=== PATIENT | female | born 1975 | race Caucasian/White ===

== ENCOUNTER 2018-08-02 07:55 | Day surgery (SDC) | END 2018-08-02 10:39 | disposition home or self-care (01) ==

== ENCOUNTER 2018-12-08 07:06 | Day surgery (SDC) | payer OTHER ==
[~2018-12-08] VITALS: Ht 157.5 cm; Wt 55.4 kg
[~2018-12-08 07:06] MED LIST: OMEP20CA16 PO; RANI150T5 PO
[2018-12-08] MEDS ORDERED: no medications (08:19)
[2018-12-08 08:22] VITALS: BP 107/64; PULSE 74; RESP 14
[2018-12-08 08:25] VITALS: Ht 157.5 cm; Wt 55.4 kg
[2018-12-08] MEDS ORDERED: MIDAZOLAM 1 MG/ML 2 ML INJ ONE ×2 (09:07→09:08)
[2018-12-08] MEDS ORDERED: FENTAnyl 50 MCG/ML VIAL ONE (09:07)
[2018-12-08 09:35] VITALS: BP 104/64; RESP 16
== END 2018-12-08 09:52 | disposition home or self-care (01) ==
LOC: GIL 07:06
PROVIDERS: ATTEND Internal Medicine Gastroenterology
DX: C16.9 Malignant neoplasm of stomach, unspecified (principal); K29.60 Other gastritis without bleeding
CPT/HCPCS: 43239; 84703; 88305; 88312; 88313; J2250; J3010; Z7610

== ENCOUNTER 2018-12-30 05:29 | Day surgery (SDC) | payer OTHER ==
[2018-12-29 09:56] VITALS: BMI 22.5
[~2018-12-30] VITALS: Ht 153.7 cm; Wt 53.7 kg
[~2018-12-30 05:29] MED LIST changes: -OMEP20CA16 PO; -RANI150T5 PO; +no medications
[2018-12-30 05:56] VITALS: Ht 153.7 cm; Wt 53.7 kg
[2018-12-30] MEDS ORDERED: AMPICILLIN/SULB 3 GM/NS (PMX) 100 ML IVPB ONE (07:00)
== END 2018-12-30 06:15 | disposition home or self-care (01) ==
LOC: SDS 05:29 → UNDOADMIN 05:29 → REC 05:29 → SDS 06:15 → UNDODISIN 06:15 → EDSTATUS 07:30
PROVIDERS: ATTEND Surgery Surgical Oncology
DX: C16.9 Malignant neoplasm of stomach, unspecified (principal); R50.9 Fever, unspecified; Z53.09 Procedure and treatment not carried out because of other contraindication
CPT/HCPCS: J0295

== ENCOUNTER 2019-01-31 06:59 | Day surgery (SDC) | payer OTHER ==
[2019-01-28 17:06] VITALS: BMI 23.3
[~2019-01-31] VITALS: Ht 154.9 cm; Wt 55.0 kg
[2019-01-31] MEDS ORDERED: SOD CHLORIDE 0.9% 1,000 ML IV SCH (07:00)
[2019-01-31] MEDS ORDERED: AMPICILLIN/SULB 3 GM/NS (PMX) 100 ML IVPB ONE (07:00)
[2019-01-31 08:21] VITALS: Ht 154.9 cm; Wt 55.0 kg
[2019-01-31 08:28] VITALS: BP 111/73; PULSE 94; RESP 16
== END 2019-01-31 08:47 | disposition home or self-care (01) ==
LOC: SDS 06:59 → UNDOADMIN 06:59 → REC 06:59 → SDS 08:47 → UNDODISIN 08:47 → EDSTATUS 11:30
PROVIDERS: ATTEND Surgery Surgical Oncology
DX: C16.9 Malignant neoplasm of stomach, unspecified (principal); Z53.8 Procedure and treatment not carried out for other reasons; J02.9 Acute pharyngitis, unspecified
CPT/HCPCS: J0295

== ENCOUNTER 2019-02-11 06:00 | Inpatient (IN) | payer OTHER ==
[2019-02-10 16:25] VITALS: Ht 154.9 cm; Wt 56.3 kg
[2019-02-11] VITALS (35 sets, daily range): BP systolic 114–166; BP diastolic 78–100; PULSE 67–110; RESP 15–21
[~2019-02-11] VITALS: Ht 154.9 cm; Wt 56.3 kg
[2019-02-11] MEDS ORDERED: ROCURONIUM 50 MG INJ ONE ×3 (06:30→09:55)
[2019-02-11] MEDS ORDERED: CEFAZOLIN 1 GM INJ ONE (06:30)
[2019-02-11] MEDS ORDERED: PROPOFOL 20 ML ONE (06:30)
[2019-02-11] MEDS ORDERED: MIDAZOLAM 1 MG/ML 2 ML INJ ONE (06:31)
[2019-02-11] MEDS ORDERED: DEXAMETHASONE 4 MG/ML 5 ML INJ ONE (06:32)
[2019-02-11] MEDS ORDERED: ONDANSETRON 4 MG INJ ONE (06:32)
[2019-02-11] MEDS ORDERED: DESFLURANE 15 MIN ONE (07:00)
[2019-02-11] MEDS ORDERED: SOD CHLORIDE 0.9% 1,000 ML IV ONE (07:00)
--- NOTE | 2019-02-11 07:33 | PREAC ---
Date/Time of Note Date/Time of Note DATE: 02/11/19 TIME: 07:31 Anesthesia Eval and Record Evaluation Time Pre-Procedure Interview DATE: 02/11/19 TIME: 07:31 Age 43 Sex female NPO: 8 hrs Preoperative diagnosis Gastric Cancer Planned procedure Partial Gastrectomy Past Medical History Past Medical History: None Surgery & Anesthesia Issues No known issue Meds Anticoagulation: No Beta Khoa within 24 hr: No Reason Beta Khoa not given: Pt. not on B-Khoa No Active Prescriptions or Reported Meds Current Medications Sodium Chloride 1,000 ml @ 75 mls/hr [id number] ONCE IV Last administered on 02/11/19at 07:07; Admin Dose 75 MLS/HR; Start 02/11/19 at 07:00; Stop 02/11/19 at 20:19 Meds reviewed: Yes Allergies Coded Allergies: No Known Allergy (Unverified , 01/31/19) Allergies Reviewed: Yes Labs/Studies Labs Reviewed: Reviewed by anesthesiologist Result Diagram: 02/11/19 0640 Laboratory Tests 02/11/19 06:40 Blood Bank Test 02/11/19 07:27 Blood Product Summary Counts test: Negative Pre-procedure Exam Last vitals Vital Signs Date Temp Pulse Resp B/P (MAP) Pulse Ox O2 O2 Flow FiO2 Time Delivery Rate 02/11/19 96.2 67 18 114/78 100 Room Air 06:52 (90) Airway: Adequate mouth opening Mallampati: Mallampati II Teeth: Normal Lung: Normal Heart: Normal ASA Physical Status ASA physical status: 2 Emergency: None Planned Anesthetic General/MAC: ETT Pre-operative Attestations Prior to commencing anesthesia and surgery, the patient was re-evaluated, there was verification of: *The patient's identity *The results of appropriate recent lab work and preoperative vital signs *The above evaluation not changing prior to induction *Anesthetic plan, risk benefits, alternative and complications discussed with patient/family; questions answered; patient/family understands, accepts and wishes to proceed. EMIL OSORIO MD February 11, 2019 07:33
[2019-02-11] MEDS ORDERED: BUPIVACAINE 0.5% (SDV) 30 ML INJ ONE (09:22)
[2019-02-11] MEDS ORDERED: FENTAnyl 50 MCG/ML VIAL ONE ×3 (10:16→11:23)
[2019-02-11] MEDS ORDERED: ONDANSETRON 4 MG INJ IV PRN (10:30)
[2019-02-11] MEDS ORDERED: MEPERIDINE 25 MG INJ IV PRN (10:30)
[2019-02-11] MEDS ORDERED: HYDROmorphONE 1 MG/5 ML IV SYRINGE IV PRN (10:30)
[2019-02-11] MEDS ORDERED: GLYCOPYRROLATE 0.4 MG INJ ONE (12:10)
[2019-02-11] MEDS ORDERED: NEOSTIGMINE 3 MG/3 ML SYRINGE ONE (12:10)
[2019-02-11] MEDS: LACTATED RINGER'S 1,000 ML IV SCH ×2 (13:24→18:43)
[2019-02-11] MEDS: CEFAZOLIN 2 GM/50 ML (PMX) 50 ML IVPB SCH ×2 (13:30→21:20)
[2019-02-11] MEDS ORDERED: HYDROmorphONE 0.2 MG/ML PCA IV SCH (13:30)
[2019-02-11] MEDS ORDERED: NALOXONE (0.4 MG/ML) INJ IV PRN (13:30)
[2019-02-11] MEDS ORDERED: HYDROCODONE/APAP (5/325) TAB PO ONE (13:30)
--- NOTE | 2019-02-11 13:44 | OPR ---
Date/Time of Note Date/Time of Note DATE: 02/11/19 TIME: 13:28 Operative Report Procedure Date: February 11, 2019 Preoperative Diagnosis gastric cancer Postoperative Diagnosis same Operation/Procedure Performed 1. laparoscopic subtotal gastrectomy for gastric cancer 2. therapeutic injection of subcutaneous local anesthesia Surgeon see signature line Rig Builder Helper Ligia GREENE Anesthesia Type: general Estimated Blood Loss: 10 - 50 ml's Transfusion none Specimen subtotal gastrectomy anastomosis Grafts/Implants none Complications none Pt Condition Post Procedure: stable Indications This is a 43-year-old female who was diagnosed with gastric cancer. She had seen Dr. Bunch initially and was scheduled for surgery. However the patient had canceled and delayed her surgery multiple times. Discussion was made that her cancer may have progressed. She was urgently told to get surgery. She is now here for laparoscopic subtotal gastrectomy possible open. Risks alternatives benefits and personal were discussed the patient. Potential complications including but not limited to bleeding infection wound dehiscence chronic and acute pain seroma hematoma progression of cancer anastomotic leak and stricture of the anastomosis were discussed the patient. Patient expressed understanding and consents to the operation. Procedure Description Patient is taken to the OR and prepped and draped in usual sterile fashion. Patient was placed in lithotomy with Weeks placement. Surgical timeout is performed IV antibiotics given. Left upper periumbilical transverse incision was made with a 15 blade. Using a 12 mm optical trocar optical entry is performed. Pneumoperitoneum was established. Left upper quadrant 12 mm optical trochars placed in direct visualization of the right upper quadrant 5 mm optical trochars placed under direct visualization. Left flank 12 mm optical trochars placed under direct visualization. Lower abdominal 12 mm optical trochars placed under direct visualization. Upon initial inspection there is no obvious metastatic disease in the liver. Laparoscopic harmonic shmuel was used to dissect the greater omentum off of the transverse mesocolon. This was done laterally to the left into the right of the patient. This was taken up all at the left to the short gastrics. The omentum is off of all the surrounding structures including the spleen. An area of transection was then demarcated. This separation of the omentum from the transverse mesocolon is taken to the patient's right. The gastroepiploic vessels were identified. The duodenum is isolated and identified. The duodenum was then divided from the stomach using a 45 mm echelon white load stapler. The duodenal stump was then oversewn with a running 3-0 Vicryl to ensure good hemostasis. The gastroepiploic vessels in the right gastric vessels are taken using a laparoscopic 45 Weott white load staplers. This dissection was carried prox imally along pars flaccida up to the area of the left gastric artery. The left gastric artery was preserved as a pedicle for the remaining of the stomach. The stomach was then transected with multiple fires of blue load 45 Weott stapler to divide the distal stomach from a small ridge of the proximal stomach. The specimen was set aside in the right upper quadrant. Attention was then paid to the transverse colon and this is reflected superiorly. The ligament of Treitz is followed identified. The jejunum is marched approximately 40 to 50 cm distal from the ligament of Treitz. This area of the jejunum was then assessed for reach to the proximal stomach remnant. There is good reach without any tension. The jejunum was then divided using a 45 mm echelon white load stapler. The mesentery was further divided using laparoscopic harmonic shmuel. The biliopancreatic limb was then marked with clips to identify orientation. The alimentary tract is then brought up up and attached to the proximal stomach with 3-0 silk stay sutures using laparoscopic techniques and laparoscopic suturing. Enterotomies were made in the stomach remnant and the alimentary jejunum. Multiple fires of 45 mm blue load Weott stapler is used to make the gastrojejunostomy. The remnant remaining enterotomy is then reapproximated with interrupted silk 3 oh using laparoscopic suturing techniques. Attention of the staple line was relieved by placing a 3-0 silk from the gastrojejunostomy. The remaining enterotomy was then stapled off with multiple fires of blue and green load Weott stapler. This new staple line is then oversewn with a 3-0 Vicryl using laparoscopic techniques. This anastomotic specimen is set aside. #19 JENNA drains were then placed in the right upper quadrant at the duodenal stump and in the left upper quadrant the gastric jejunostomy anastomosis. These drains were secured using 2-0 nylon's. The midline is then opened with a 10 blade and dissection was carried down to the fascia. Wound protector was placed. The stomach specimen is then retrieved and sent to pathology for proximal distal and frozen analysis. Frozen analysis came back with negative findings for the margins. The anastomotic specimen was also sent for specimen. The biliopancreatic limb was identified and pulled through the midline incision. The alimentary tract was also pulled through. The jejunojejunal anastomosis was then approximately 45 to 50 cm from the gastrojejunostomy anastomotic site. This was performed by placing the enterotomy and the bili pancreatic limb and the alimentary limb. 3-0 silk stay sutures were placed. 2 fires of 45 mm echelon vascular load was used to make a jejunojejunal anastomosis. The enterotomy was then oversewn with a running 3-0 PDS and interrupted 3-0 silk. Mesenteric defect was also closed with a running 3-0 Vicryl. All ports were removed under direct visualization. Skin was closed using skin amarilis. Therapeutic contains local anesthesia was injected at the incision site. Dry dressings were applied. Radha HERNANDEZ February 11, 2019 13:44
--- NOTE | 2019-02-11 13:51 | PAC ---
Date/Time of Note Date/Time of Note DATE: 02/11/19 TIME: 13:50 Post-Anesthesia Notes Post-Anesthesia Note Last documented vital signs Vital Signs Date Temp Pulse Resp B/P (MAP) Pulse Ox O2 O2 Flow FiO2 Time Delivery Rate 02/11/19 96.2 67 18 114/78 100 Room Air 06:52 (90) Activity: WNL Respiratory function: WNL Cardiovascular function: WNL Mental status: Baseline Pain reasonably controlled: Yes Hydration appropriate: Yes Nausea/Vomiting absent: Yes EMIL OSORIO MD February 11, 2019 13:51
--- NOTE | 2019-02-11 18:53 | RADRPT ---
Vent Rate: 90 bpm RR Interval: 668 msec [place] Interval: 144 msec QRS Duration: 75 msec QT Interval: 358 msec QTC Interval: 438 msec P-R-T [place]: 45 - 61 - 60 degrees Sinus rhythm...normal P axis, V-rate 50- 99 Electronically Signed By: Juan Diego Enriquez
[2019-02-11] MEDS: HYDROmorphONE 0.2 MG/ML PCA IV SCH (23:11)
[2019-02-12 01:50] VITALS: BP 132/94; PULSE 87; RESP 18
[2019-02-12] MEDS: PANTOPRAZOLE 40 MG INJ IV SCH (05:23)
[2019-02-12] MEDS: CEFAZOLIN 2 GM/50 ML (PMX) 50 ML IVPB SCH (05:23)
[2019-02-12] MEDS: LACTATED RINGER'S 1,000 ML IV SCH ×4 (05:23→18:33)
--- NOTE | 2019-02-12 08:16 | HP ---
DATE OF ADMISSION: 02/11/2019 CHIEF COMPLAINTS AND HISTORY OF PRESENT ILLNESS: The patient is a 43-year-old female with a diagnosi s of gastric cancer diagnosed by EGD done back in July 2018. The patient has isolated ulcer like area with nodularity noted in the mid body of the stomach. The patient underwent recent EGD and sub sequent biopsy. 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 The ginette ent was initially seen by Dr. Bunch and was cleared for surgery; however, the patient had canceled an d delayed her surgery multiple times. She was urgently told to get surgery due to potential progress ion of cancer. The patient was brought into hospital today and underwent laparoscopic subtotal gastr ectomy. The patient is being kept n.p.o. and has been started on IV fluid, IV Protonix. Pain is man aged with Dilaudid SOFTWARE ENG[employer]PLICATIONS. The patient denies any chest pain or shortness of breath. No history of hea dache, dizziness, syncope. No history of focal weakness or numbness, tingling. REVIEW OF SYSTEMS: Other than postoperative pain, rest of review of systems unremarkable. ALLERGIES: NONE. SOCIAL HISTORY: No smoking or alcohol. FAMILY HISTORY: Noncontributory. ALLERGIES: NONE. PHYSICAL EXAMINATION: GENERAL: The patient is awake, alert, fairly oriented. VITAL SIGNS: Temperature 98.5, pulse 90, respirations 18, blood pressure 144/85, O2 saturation 99%. HEENT: No eye discharge or redness. Conjunctivae are normal. Nose and ears normal. NECK: No mass. CHEST: Fairly clear. CARDIOVASCULAR: S1, S2 normal, no murmur. ABDOMEN: The patient is status post surgery. EXTREMITIES: No edema. Pedal pulses are palpable. SKIN: Without acute rash. NEUROLOGIC: The patient is awake, alert with no gross focal deficit. LABORATORY DATA: Initial WBC was 8.8. Immediate postoperative it went to up 35.3. We will have ano ther followup with CBC. The patient will be given IV cefazolin as per protocol. Chemistries; sodium 141, potassium 3.6, BUN 30, creatinine 8.6, glucose initially was 83. Subsequently it was 251. She has had no history of diabetes. Liver enzymes are normal. IMPRESSION: 1. Gastric cancer status post laparoscopic subtotal gastrectomy. PLAN: The patient admitted on medical floor. The patient will be kept n.p.o., will be given IV flui d, IV pain medication. We will also add IV Protonix. We will obtain followup CBC and CMP. Meanwhil e, the patient will be continued on empiric IV cefazolin as per protocol. Dictated By: KIRAN CARMEN MD AB/NTS Conf#: [id number] DID#: [id number] CC: CLAUDE HERNANDEZ MD; KIRAN CARMEN MD;*EndCC*
[2019-02-12] MEDS: HYDROmorphONE 0.2 MG/ML PCA IV SCH ×2 (09:08→16:43)
[2019-02-12] MEDS: DIPHENHYDRAMINE 50 MG INJ IV PRN (11:06)
[2019-02-12 14:44] VITALS: BP 122/70; PULSE 98; RESP 18
[2019-02-12] MEDS ORDERED: LACTATED RINGER'S 500 ML IV ONE (15:00)
--- NOTE | 2019-02-12 17:16 | PN ---
Date/Time of Note Date/Time of Note DATE: 02/12/19 TIME: 17:14 Assessment/Plan VTE Prophylaxis [place] [facility] [place] risk: 8 SCD applied ([place] [facility] [place] Yes SCD contraindicated: other Pharmacological prophylaxis: other Pharm contraindication: other Lines/Catheters IV [facility]atheter Type (from [facility]): Peripheral IV Urinary Cath still in place: Yes Reason Cath still needed: urinary retention Assessment/Plan Assessment/Plan 1. Gastric cancer status post laparoscopic subtotal gastrectomy. - per sx - continued on empiric IV cefazolin as per protocol. - pain control - wound care 2. Leukocytosis- afebrile; wbc trended down - getting post op cefazolin - fu CBC 3. Anemia0 Hgb stale 4, SCD for DVT prophylaxis Patient seen in collaboration with Dr Busch Result Diagram: 02/12/195 02/12/19 0425 Results 24hrs Laboratory Tests Test 02/12/19 04:25 02/12/19 07:10 White Blood Count 22.4 #H Red Blood Count 3.85 L Hemoglobin 11.9 L Hematocrit 34.5 L Mean Corpuscular Volume 89.6 Mean Corpuscular Hemoglobin 30.9 Mean Corpuscular Hemoglobin Concent 34.5 Red Cell Distribution Width 12.3 Platelet Count 215 Mean Platelet Volume 11.4 H Immature Granulocytes % 0.600 H Neutrophils % 79.2 H Lymphocytes % 11.8 L Monocytes % 8.3 Eosinophils % 0.0 Basophils % 0.1 Nucleated Red Blood Cells % 0.0 Immature Granulocytes # 0.140 H Neutrophils # 17.7 H Lymphocytes # 2.6 Monocytes # 1.9 H Eosinophils # 0.0 Basophils # 0.0 Nucleated Red Blood Cells # 0.0 Sodium Level 134 L Potassium Level 5.0 Chloride Level 99 Carbon Dioxide Level 31 # Anion Gap 4 #L Blood Urea Nitrogen 7 Creatinine 0.64 Est Glomerular Filtrat Rate mL/min > 60 Glucose Level 100 # Calcium Level 9.2 Total Bilirubin 0.7 Direct Bilirubin 0.00 Indirect Bilirubin 0.7 Aspartate Amino Transf (AST/SGOT) 49 H Alanine Aminotransferase (ALT/SGPT) 49 Alkaline Phosphatase 51 Total Protein 6.1 Albumin 3.5 Globulin 2.60 Albumin/Globulin Ratio 1.34 Lab Scanned Report REFERENCE LAB Subjective 24 Hr Interval Summary Eyes: no complaints ENT: no complaints Respiratory: no complaints Gastrointestinal: pain Genitourinary: no complaints Musculoskeletal: no complaints Skin: no complaints Neurologic: no complaints Endocrine: no complaints Lymphatic: no complaints Exam/Review of Systems Exam Vitals Vital Signs Date Temp Pulse Resp B/P (MAP) Pulse Ox O2 O2 Flow FiO2 Time Delivery Rate 02/12/19 18 16:37 02/12/19 98.3 98 122/70 99 Room Air 14:44 (87) 02/12/19 2.0 08:00 Intake and Output 02/11/19 02/11/19 02/12/19 1515:00 23:00 07:00 IntakeIntake Total 3000 ml 50 ml 1050 ml OutputOutput Total 190 ml 900 ml 20 ml BalanceBalance 2810 ml -850 ml 1030 ml Constitutional: alert, well developed Psych: nl mood/affect Head: atraumatic Eyes: nl lids ENMT: nl external ears & nose Neck: non-tender Respiratory: clear to auscultation Cardiovascular: nl pulses, other Gastrointestinal: soft, tender, other (surgical abdomen ) Musculoskeletal: nl extremities to inspection Extremities: normal pulses Neurological: other (alert.rponsive ) Lymph: nontender Results Results 24hrs Laboratory Tests Test 02/12/19 04:25 02/12/19 07:10 White Blood Count 22.4 #H Red Blood Count 3.85 L Hemoglobin 11.9 L Hematocrit 34.5 L Mean Corpuscular Volume 89.6 Mean Corpuscular Hemoglobin 30.9 Mean Corpuscular Hemoglobin Concent 34.5 Red Cell Distribution Width 12.3 Platelet Count 215 Mean Platelet Volume 11.4 H Immature Granulocytes % 0.600 H Neutrophils % 79.2 H Lymphocytes % 11.8 L Monocytes % 8.3 Eosinophils % 0.0 Basophils % 0.1 Nucleated Red Blood Cells % 0.0 Immature Granulocytes # 0.140 H Neutrophils # 17.7 H Lymphocytes # 2.6 Monocytes # 1.9 H Eosinophils # 0.0 Basophils # 0.0 Nucleated Red Blood Cells # 0.0 Sodium Level 134 L Potassium Level 5.0 Chloride Level 99 Carbon Dioxide Level 31 # Anion Gap 4 #L Blood Urea Nitrogen 7 Creatinine 0.64 Est Glomerular Filtrat Rate mL/min > 60 Glucose Level 100 # Calcium Level 9.2 Total Bilirubin 0.7 Direct Bilirubin 0.00 Indirect Bilirubin 0.7 Aspartate Amino Transf (AST/SGOT) 49 H Alanine Aminotransferase (ALT/SGPT) 49 Alkaline Phosphatase 51 Total Protein 6.1 Albumin 3.5 Globulin 2.60 Albumin/Globulin Ratio 1.34 Lab Scanned Report REFERENCE LAB Medications Medication Current Medications Pantoprazole (Protonix Iv) 40 mg DAILY@06 IV Last administered on 02/12/19 05:23; Admin Dose 40 MG; Start 02/12/19 at 06:00 Lactated Ringer's 1,000 ml @ 150 mls/hr Q6H40M IV Last administered on 01/20 15:56; Admin Dose 150 MLS/HR; Start 02/11/19 at 13:24 Naloxone HCl (Narcan) 0.2 mg Q2M PRN IV RR 8 BREATHS/MIN OR LESS; Start 02/11/19 at 13:30 Diphenhydramine HCl (Benadryl) 25 mg Q6H PRN IV ITCHING Last administered on 02/12/19 11:06; Admin Dose 25 MG; Start 02/12/19 at 08:30 Hydromorphone HCl (Dilaudid TYRE RETREADER) Q4PCA IV Last administered on 02/12/19 16:43; Admin Dose 6 MG; Start 02/12/19 at 11:30 JEFFERSON ABRAHAM February 12, 2019 17:16
--- NOTE | 2019-02-12 17:33 | PN ---
DATE: 02/12/2019 SUBJECTIVE: The patient still has significant postoperative pain. No reported vomiting. No reporte d fever or chills. No reported chest pain or shortness of breath. He remains awake, alert. OBJECTIVE: VITAL SIGNS: Temperature 98.8, pulse 87, respirations 18, blood pressure 122/94, O2 sat 99% on nasal cannula. HEENT: No eye discharge or redness. Conjunctivae normal. Oropharynx clear. NECK: No mass. CHEST: Fairly clear. CARDIOVASCULAR: S1, S2 normal. ABDOMEN: The patient is status post subtotal gastrectomy. EXTREMITIES: No edema. Pedal pulse palpable. SKIN: Without rash. NEUROLOGIC: The patient is awake, alert, with no gross focal deficit. LABORATORY DATA: WBC 22.4 down from 35.3, hemoglobin 11.9, platelets 215. Sodium 134, potassium 5, BUN 7, creatinine 0.6. Liver enzymes unremarkable except for AST of 49. IMPRESSION: 1. Gastric cancer, status post laparoscopic subtotal gastrectomy. 2. Mild hypertension. Will add p.r.n. hydralazine. The patient is getting IV cefazolin and Ringer lactate. We continue SCD for DVT prophylaxis. The patient was complaining of itching. Will add Aung adryl for GI prophylaxis. The patient is already on IV Protonix. Will do followup labs tomorrow. T he patient's TIP SCOURER dose will be increased to Dilaudid 0.2 mg an hour continuous. Other parameters will remain the same. Plan was discussed with the nursing staff. Dictated By: KIRAN LAWRENCE/BEULAH Conf#: [id number] DID#: [id number] CC: CLAUDE HERNANDEZ MD;*EndCC*
--- NOTE | 2019-02-12 17:40 | PN ---
DATE: 02/12/2019 Postop day #1 status post subtotal gastrectomy, laparoscopic, for cancer of the stomach. SUBJECTIVE: Complains of too much thirst and would like to eat. OBJECTIVE: GENERAL: Awake, alert, oriented. VITAL SIGNS: Temperature 98.8, heart rate 87, respirations 18, blood pressure 132/94, saturation 99% on 2 liters nasal cannula. No nausea, no vomiting. CLINICAL EXAM: HEART: Regular. LUNGS: Clear. ABDOMEN: Flat and soft, not distended. LABORATORY DATA: WBC 22,400 with 79% segmented, which is shift to the left, hemoglobin 11.9, hematocrit 34.5. Chemistry: Sodium is 134, potassium 5, BUN 7, creatinine 0.64. ASSESSMENT AND PLAN: The patient postop day #1 subtotal gastrectomy laparoscopically for cancer of the stomach. So far the patient is stable. The patient is on TROUSSEAU CONSULTANT, Dilaudid. We are going to increase the IV fluid to 150 mL per hour. We are going to give a 500 mL bolus of lactated Ringer's. Also discussed with Dr. Guerin, and he agrees to give the patient ice chips 1 cup every 8 hours at most. Dictated By: BECKA GEORGE MD PS/NTS Conf#: [id number] DID#: [id number] CC: CLAUDE GUERIN MD;*EndCC* MTDD
[2019-02-12 19:00] VITALS: BP 140/81; PULSE 107; RESP 19
[2019-02-12 19:56] VITALS: BP 143/87; PULSE 97; RESP 18
[2019-02-12] MEDS: ACETAMINOPHEN 1000MG/100ML IV 100 ML IVPB PRN (21:25)
[2019-02-13] MEDS: LACTATED RINGER'S 1,000 ML IV SCH ×4 (01:02→23:32)
[2019-02-13] MEDS: HYDROmorphONE 0.2 MG/ML PCA IV SCH ×2 (01:49→18:53)
[2019-02-13 02:07] VITALS: BP 122/83; PULSE 101; RESP 18
[2019-02-13] MEDS: LORAZEPAM 2 MG INJ IV PRN (02:08)
[2019-02-13] MEDS: PANTOPRAZOLE 40 MG INJ IV SCH (05:20)
[2019-02-13] MEDS: ACETAMINOPHEN 1000MG/100ML IV 100 ML IVPB PRN ×2 (05:20→16:41)
[2019-02-13 07:30] VITALS: BP 111/74; PULSE 127; RESP 15
[2019-02-13] MEDS: PIPER-TAZO 3.375 GM IV (PMX) 100 ML IVPB SCH ×2 (14:59→23:31)
[2019-02-13 16:33] VITALS: BP 122/82; PULSE 100; RESP 15
[2019-02-13] MEDS ORDERED: IOHEXOL 300MG/ML 150 ML BTL ONE (16:52)
--- NOTE | 2019-02-13 17:06 | PN ---
DATE: 02/13/2019 Postop day #2 status post laparoscopic subtotal gastrectomy and Yuan-en-Y gastrojejunostomy. SUBJECTIVE: The patient states that when she started to try to clear liquids including even some ice chips or a little bit of jello, she gets severe epigastric pain. Rate of the pain could be 6/10 and when she stops eating or drinking, the pain goes away gradually. No nausea, no vomiting. OBJECTIVE: GENERAL: Awake and oriented. VITAL SIGNS: Temperature has been maximum 99.3 today. Heart rate documented has been fluctuating be tween 110 and 130. Respirations about 18, blood pressure 111/74. Saturation is 96% in room. HEART: Irregularly irregular. LUNGS: Clear. ABDOMEN: Flat, soft. No guarding, no rigidity. Bowel sounds are present. The patient actually has passed some flatus. EXTREMITIES: Lower extremities are negative. INPUT AND OUTPUT: The patient's urine output has been good and in past 24 hours has urinated 3250 mL . The patient still has Weeks catheter. LABORATORY DATA: WBC dropped from 22,000 yesterday to today 15,000 with 70% segmented, which is norm al differential. Hemoglobin is 12.2, hematocrit 35.8 which is stable. Platelet is 198. Chemistry: Sodium, potassium, BUN, creatinine within normal limits. DIAGNOSTIC DATA: Chest x-ray which was done today, impression: No evidence of acute cardiopulmonary process. IMPRESSION: A 44-year-old female, status post laparoscopic subtotal gastrectomy and anastomosis post op day #2. The patient has experienced some epigastric pain but was started on clear liquids. Also, the patient is anxious to some extent and requesting medication for the sleep. The patient is on PC A Dilaudid. PLAN: Overall, besides the episode of tachycardia which is up 130, otherwise the patient appears sta ble so far. I am going to check with Dr. Hernandez and we will check the Gastrografin swallow and upper GI and Dr. Hernandez wanted to start antibiotic on Zosyn. Dictated By: BECKA GEORGE MD PS/NTS Conf#: [id number] DID#: [id number] CC: KIRAN CARMEN MD; CLAUDE HERNANDEZ MD;*End*
--- NOTE | 2019-02-13 19:27 | RADRPT ---
Vent Rate: 119 bpm RR Interval: 504 msec [place] Interval: 143 msec QRS Duration: 70 msec QT Interval: 304 msec QTC Interval: 428 msec P-R-T [place]: 59 - 64 - 42 degrees Sinus tachycardia...rate> 99 Electronically Signed By: Juan Diego Enriquez
[2019-02-13] MEDS ORDERED: BARIUM SULF 2% 450 ML BTL (BERRY SMOOTHIE) PO ONE (19:30)
[2019-02-13 20:18] VITALS: BP 126/84; PULSE 112; RESP 18
[2019-02-14 02:23] VITALS: BP 121/77; PULSE 107; RESP 18
[2019-02-14] MEDS: PIPER-TAZO 3.375 GM IV (PMX) 100 ML IVPB SCH ×4 (05:06→23:25)
[2019-02-14] MEDS: PANTOPRAZOLE 40 MG INJ IV SCH (05:06)
[2019-02-14 07:24] VITALS: BP 126/83; PULSE 105; RESP 18
[2019-02-14] MEDS: LACTATED RINGER'S 1,000 ML IV SCH ×2 (10:58→11:42)
[2019-02-14] MEDS: HYDROmorphONE 0.2 MG/ML PCA IV SCH (11:40)
--- NOTE | 2019-02-14 12:11 | PN ---
Date/Time of Note Date/Time of Note DATE: 02/14/19 TIME: 12:09 Assessment/Plan VTE Prophylaxis Risk score (from Nsg)>0 risk: 8 SCD applied (from Nsg): Yes Pharmacological prophylaxis: other Lines/Catheters IV Catheter Type (from Nrsg): Peripheral IV Urinary Cath still in place: Yes Reason Cath still needed: other (indicate) Assessment/Plan Assessment/Plan s/p lap subtotal gastrectomy for gastric cancer will continue to monitor advance to clear liquids sheet music salesperson for pain control another day as patient is using it often Result Diagram: 02/14/19 0436 02/14/19 0436 Results 24hrs Laboratory Tests Test 02/14/19 04:36 White Blood Count 14.8 H Red Blood Count 4.03 L Hemoglobin 12.3 Hematocrit 36.9 L Mean Corpuscular Volume 91.6 Mean Corpuscular Hemoglobin 30.5 Mean Corpuscular Hemoglobin Concent 33.3 Red Cell Distribution Width 12.0 Platelet Count 223 Mean Platelet Volume 11.0 H Immature Granulocytes % 0.300 Neutrophils % 79.0 H Lymphocytes % 12.0 L Monocytes % 7.4 Eosinophils % 0.9 Basophils % 0.4 Nucleated Red Blood Cells % 0.0 Immature Granulocytes # 0.050 H Neutrophils # 11.7 H Lymphocytes # 1.8 Monocytes # 1.1 H Eosinophils # 0.1 Basophils # 0.1 Nucleated Red Blood Cells # 0.0 Sodium Level 138 Potassium Level 4.2 Chloride Level 107 Carbon Dioxide Level 18 #L Anion Gap 13 Blood Urea Nitrogen 7 Creatinine 0.62 Est Glomerular Filtrat Rate mL/min > 60 Glucose Level 77 Calcium Level 9.2 Subjective 24 Hr Interval Summary Free Text/Dictation patient doing well. an initial upper GI indicated an anastomotic leak but a CT revealed otherwise and stated that there was no leak. Considering that the patient looks well and no clinical indication of anastomotic leak will proceed with routine postoperative course Exam/Review of Systems Exam Vitals Vital Signs Date Temp Pulse Resp B/P (MAP) Pulse Ox O2 O2 Flow FiO2 Time Delivery Rate 02/14/19 18 11:46 02/14/19 98.8 105 126/83 98 Room Air 07:24 (97) 02/12/19 2.0 20:00 Intake and Output 02/13/19 02/13/19 02/14/19 1515:00 23:00 07:00 IntakeIntake Total 2650 ml 500 ml 1250 ml OutputOutput Total 1690 ml 2370 ml BalanceBalance 960 ml 500 ml -1120 ml Exam c/d/i JENNA drains all serosanguinous Results Results 24hrs Laboratory Tests Test 02/14/19 04:36 White Blood Count 14.8 H Red Blood Count 4.03 L Hemoglobin 12.3 Hematocrit 36.9 L Mean Corpuscular Volume 91.6 Mean Corpuscular Hemoglobin 30.5 Mean Corpuscular Hemoglobin Concent 33.3 Red Cell Distribution Width 12.0 Platelet Count 223 Mean Platelet Volume 11.0 H Immature Granulocytes % 0.300 Neutrophils % 79.0 H Lymphocytes % 12.0 L Monocytes % 7.4 Eosinophils % 0.9 Basophils % 0.4 Nucleated Red Blood Cells % 0.0 Immature Granulocytes # 0.050 H Neutrophils # 11.7 H Lymphocytes # 1.8 Monocytes # 1.1 H Eosinophils # 0.1 Basophils # 0.1 Nucleated Red Blood Cells # 0.0 Sodium Level 138 Potassium Level 4.2 Chloride Level 107 Carbon Dioxide Level 18 #L Anion Gap 13 Blood Urea Nitrogen 7 Creatinine 0.62 Est Glomerular Filtrat Rate mL/min > 60 Glucose Level 77 Calcium Level 9.2 Medications Medication Current Medications Pantoprazole (Protonix Iv) 40 mg DAILY@06 IV Last administered on 02/14/19at 05:06; Admin Dose 40 MG; Start 02/12/19 at 06:00 Lactated Ringer's 1,000 ml @ 100 mls/hr Q10H IV Last administered on 02/14/19at 11:42; Admin Dose 100 MLS/HR; Start 02/11/19 at 13:24 Naloxone HCl (Narcan) 0.2 mg Q2M PRN IV RR 8 BREATHS/MIN OR LESS; Start 02/11/19 at 13:30 Diphenhydramine HCl (Benadryl) 25 mg Q6H PRN IV ITCHING Last administered on 02/12/19at 11:06; Admin Dose 25 MG; Start 02/12/19 at 08:30 Hydromorphone HCl (Dilaudid CARD PLAYER) Q4PCA IV Last administered on 02/14/19at 11:40; Admin Dose 6 MG; Start 02/12/19 at 11:30 Lorazepam (Ativan) 1 mg HS PRN IV SLEEP Last administered on 02/13/19at 02:08; Admin Dose 1 MG; Start 02/13/19 at 02:00 Piperacillin Sod/ Tazobactam Sod 100 ml @ 200 mls/hr Q6 IVPB Last administered on 02/14/19at 11:40; Admin Dose 200 MLS/HR; Start 02/13/19 at 14:30 Radha HERNANDEZ February 14, 2019 12:11
[2019-02-14 14:15] VITALS: BP 129/91; PULSE 101; RESP 18
--- NOTE | 2019-02-14 17:21 | PN ---
Date/Time of Note Date/Time of Note DATE: 02/14/19 TIME: 17:18 Assessment/Plan VTE Prophylaxis Risk score (from Ns)>0 risk: 8 SCD applied (from Ns): Yes Pharmacological prophylaxis: NA/contraindicated Pharm contraindication: surgical contra Lines/Catheters IV Catheter Type (from Nrsg): Peripheral IV Central line still needed: Yes Urinary Cath still in place: Yes Reason Cath still needed: urinary retention Assessment/Plan Hospital Course Patient is sitting in his chair, pain is adequately controlled with REMOTE SENSING TECHNICIAN Dilau did, started on a clear liquid diet, patient is encouraged to use incentive spirometer. Assessment/Plan -Gastric cancer, status post laparoscopic subtotal gastrectomy. Change IV fluids and postoperative antibiotics. Continue REMOTE SENSING TECHNICIAN Dilaudid as needed for pain and Zofran as needed for nausea. Advance diet per surgery. Recommendations based on clinical course. Plan of care discussed with Dr. Busch. Result Diagram: 02/14/19 0436 02/14/19 0436 Results 24hrs Laboratory Tests Test 02/14/19 04:36 White Blood Count 14.8 H Red Blood Count 4.03 L Hemoglobin 12.3 Hematocrit 36.9 L Mean Corpuscular Volume 91.6 Mean Corpuscular Hemoglobin 30.5 Mean Corpuscular Hemoglobin Concent 33.3 Red Cell Distribution Width 12.0 Platelet Count 223 Mean Platelet Volume 11.0 H Immature Granulocytes % 0.300 Neutrophils % 79.0 H Lymphocytes % 12.0 L Monocytes % 7.4 Eosinophils % 0.9 Basophils % 0.4 Nucleated Red Blood Cells % 0.0 Immature Granulocytes # 0.050 H Neutrophils # 11.7 H Lymphocytes # 1.8 Monocytes # 1.1 H Eosinophils # 0.1 Basophils # 0.1 Nucleated Red Blood Cells # 0.0 Sodium Level 138 Potassium Level 4.2 Chloride Level 107 Carbon Dioxide Level 18 #L Anion Gap 13 Blood Urea Nitrogen 7 Creatinine 0.62 Est Glomerular Filtrat Rate mL/min > 60 Glucose Level 77 Calcium Level 9.2 Exam/Review of Systems Exam Vitals Vital Signs Date Temp Pulse Resp B/P (MAP) Pulse Ox O2 O2 Flow FiO2 Time Delivery Rate 02/14/19 98.3 101 18 129/91 99 14:15 (104) 02/14/19 Room Air 07:24 02/12/19 2.0 20:00 Intake and Output 02/13/19 02/13/19 02/14/19 1515:00 23:00 07:00 IntakeIntake Total 2650 ml 500 ml 1250 ml OutputOutput Total 1690 ml 2370 ml BalanceBalance 960 ml 500 ml -1120 ml Constitutional: alert, oriented Head: normocephalic Neck: supple Respiratory: clear to auscultation Cardiovascular: nl pulses Gastrointestinal: soft, other (Status post surgery with multiple incisions intact with amarilis, right lower quadrant JENNA drain) Extremities: normal pulses Neurological: nl mental status Results Results 24hrs Laboratory Tests Test 02/14/19 04:36 White Blood Count 14.8 H Red Blood Count 4.03 L Hemoglobin 12.3 Hematocrit 36.9 L Mean Corpuscular Volume 91.6 Mean Corpuscular Hemoglobin 30.5 Mean Corpuscular Hemoglobin Concent 33.3 Red Cell Distribution Width 12.0 Platelet Count 223 Mean Platelet Volume 11.0 H Immature Granulocytes % 0.300 Neutrophils % 79.0 H Lymphocytes % 12.0 L Monocytes % 7.4 Eosinophils % 0.9 Basophils % 0.4 Nucleated Red Blood Cells % 0.0 Immature Granulocytes # 0.050 H Neutrophils # 11.7 H Lymphocytes # 1.8 Monocytes # 1.1 H Eosinophils # 0.1 Basophils # 0.1 Nucleated Red Blood Cells # 0.0 Sodium Level 138 Potassium Level 4.2 Chloride Level 107 Carbon Dioxide Level 18 #L Anion Gap 13 Blood Urea Nitrogen 7 Creatinine 0.62 Est Glomerular Filtrat Rate mL/min > 60 Glucose Level 77 Calcium Level 9.2 Medications Medication Current Medications Pantoprazole (Protonix Iv) 40 mg DAILY@06 IV Last administered on 02/14/19at 05:06; Admin Dose 40 MG; Start 02/12/19 at 06:00 Naloxone HCl (Narcan) 0.2 mg Q2M PRN IV RR 8 BREATHS/MIN OR LESS; Start 02/11/19 at 13:30 Diphenhydramine HCl (Benadryl) 25 mg Q6H PRN IV ITCHING Last administered on 02/12/19at 11:06; Admin Dose 25 MG; Start 02/12/19 at 08:30 Hydromorphone HCl (Dilaudid REMOTE SENSING TECHNICIAN) Q4PCA IV Last administered on 02/14/19at 11:40; Admin Dose 6 MG; Start 02/12/19 at 11:30 Lorazepam (Ativan) 1 mg HS PRN IV SLEEP Last administered on 02/13/19at 02:08; Admin Dose 1 MG; Start 02/13/19 at 02:00 Piperacillin Sod/ Tazobactam Sod 100 ml @ 200 mls/hr Q6 IVPB Last administered on 02/14/19at 11:40; Admin Dose 200 MLS/HR; Start 02/13/19 at 14:30 RADHA ENRIQUEZ February 14, 2019 17:21
[2019-02-14 20:10] VITALS: BP 135/90; PULSE 105; RESP 17
[2019-02-15] VITALS (10 sets, daily range): BP systolic 120–155; BP diastolic 73–95; PULSE 81–149; RESP 17–20
[2019-02-15] MEDS: HYDROmorphONE 0.2 MG/ML PCA IV SCH ×2 (00:47→14:00)
[2019-02-15] MEDS: PIPER-TAZO 3.375 GM IV (PMX) 100 ML IVPB SCH ×2 (05:07→11:09)
[2019-02-15] MEDS: PANTOPRAZOLE 40 MG INJ IV SCH (05:08)
--- NOTE | 2019-02-15 15:21 | PN ---
Date/Time of Note Date/Time of Note DATE: 02/15/19 TIME: 15:20 Assessment/Plan VTE Prophylaxis Risk score (from Ns)>0 risk: 4 SCD applied (from Ns): Yes Pharmacological prophylaxis: NA/contraindicated Pharm contraindication: surgical contra Lines/Catheters IV Catheter Type (from Nrsg): Peripheral IV Urinary Cath still in place: No Assessment/Plan Hospital Course Patient tolerates clear liquid diet without vomiting, complains of occasional nausea, continued on HOP SORTER Dilaudid for pain. Assessment/Plan -Gastric cancer, status post laparoscopic subtotal gastrectomy. Change IV fluids and postoperative antibiotics. Continue HOP SORTER Dilaudid as needed for pain and Zofran as needed for nausea. Advance diet per surgery. Recommendations based on clinical course. Plan of care discussed with Dr. Greenberg Result Diagram: 02/15/192 02/15/19 0442 Results 24hrs Laboratory Tests Test 02/15/19 04:42 White Blood Count 12.5 H Red Blood Count 4.34 Hemoglobin 13.1 Hematocrit 37.9 Mean Corpuscular Volume 87.3 Mean Corpuscular Hemoglobin 30.2 Mean Corpuscular Hemoglobin Concent 34.6 Red Cell Distribution Width 11.9 Platelet Count 253 Mean Platelet Volume 10.5 H Immature Granulocytes % 0.400 Neutrophils % 68.8 Lymphocytes % 18.2 Monocytes % 9.7 Eosinophils % 2.6 Basophils % 0.3 Nucleated Red Blood Cells % 0.0 Immature Granulocytes # 0.050 H Neutrophils # 8.6 H Lymphocytes # 2.3 Monocytes # 1.2 H Eosinophils # 0.3 Basophils # 0.0 Nucleated Red Blood Cells # 0.0 Sodium Level 137 Potassium Level 3.6 Chloride Level 106 Carbon Dioxide Level 24 Anion Gap 7 Blood Urea Nitrogen 4 L Creatinine 0.51 Est Glomerular Filtrat Rate mL/min > 60 Glucose Level 105 Calcium Level 9.2 Exam/Review of Systems Exam Vitals Vital Signs Date Temp Pulse Resp B/P (MAP) Pulse Ox O2 O2 Flow FiO2 Time Delivery Rate 02/15/19 97.8 108 18 133/91 98 Room Air 15:05 (105) 02/12/19 2.0 20:00 Intake and Output 02/14/19 02/14/19 02/15/19 1515:00 23:00 07:00 IntakeIntake Total 950 ml 700 ml 200 ml OutputOutput Total 110 ml 40 ml 65 ml BalanceBalance 840 ml 660 ml 135 ml Exam Constitutional: alert, oriented Respiratory: clear to auscultation Cardiovascular: nl pulses Gastrointestinal: soft, other (Status post surgery with multiple incisions intact with amarilis, right lower quadrant JENNA drain) Extremities: normal pulses Neurological: nl mental status Results Results 24hrs Laboratory Tests Test 02/15/19 04:42 White Blood Count 12.5 H Red Blood Count 4.34 Hemoglobin 13.1 Hematocrit 37.9 Mean Corpuscular Volume 87.3 Mean Corpuscular Hemoglobin 30.2 Mean Corpuscular Hemoglobin Concent 34.6 Red Cell Distribution Width 11.9 Platelet Count 253 Mean Platelet Volume 10.5 H Immature Granulocytes % 0.400 Neutrophils % 68.8 Lymphocytes % 18.2 Monocytes % 9.7 Eosinophils % 2.6 Basophils % 0.3 Nucleated Red Blood Cells % 0.0 Immature Granulocytes # 0.050 H Neutrophils # 8.6 H Lymphocytes # 2.3 Monocytes # 1.2 H Eosinophils # 0.3 Basophils # 0.0 Nucleated Red Blood Cells # 0.0 Sodium Level 137 Potassium Level 3.6 Chloride Level 106 Carbon Dioxide Level 24 Anion Gap 7 Blood Urea Nitrogen 4 L Creatinine 0.51 Est Glomerular Filtrat Rate mL/min > 60 Glucose Level 105 Calcium Level 9.2 Medications Medication Current Medications Pantoprazole (Protonix Iv) 40 mg DAILY@06 IV Last administered on 02/15/19at 05 :08; Admin Dose 40 MG; Start 02/12/19 at 06:00 Naloxone HCl (Narcan) 0.2 mg Q2M PRN IV RR 8 BREATHS/MIN OR LESS; Start 02/11/19 at 13:30 Diphenhydramine HCl (Benadryl) 25 mg Q6H PRN IV ITCHING Last administered on 02/12/19at 11:06; Admin Dose 25 MG; Start 02/12/19 at 08:30 Hydromorphone HCl (Dilaudid HOP SORTER) Q4PCA IV Last administered on 02/15/19at 14:00; Admin Dose 6 MG; Start 02/12/19 at 11:30 Lorazepam (Ativan) 1 mg HS PRN IV SLEEP Last administered on 02/13/19at 02:08; Admin Dose 1 MG; Start 02/13/19 at 02:00 Piperacillin Sod/ Tazobactam Sod 100 ml @ 200 mls/hr Q6 IVPB Last administered on 02/15/19at 11:09; Admin Dose 200 MLS/HR; Start 02/13/19 at 14:30 RADHA ENRIQUEZ February 15, 2019 15:21
--- NOTE | 2019-02-15 17:34 | PN ---
Date/Time of Note Date/Time of Note DATE: 02/15/19 TIME: 17:33 Assessment/Plan VTE Prophylaxis Risk score (from Ns)>0 risk: 4 SCD applied (from Ns): Yes Pharmacological prophylaxis: other Lines/Catheters IV [facility]atheter Type (from [facility]): Peripheral IV Urinary Cath still in place: No Assessment/Plan Assessment/Plan s/p lap subtotal gastrectomy advance to fulls Result Diagram: 02/15/19 0442 02/15/19 0442 Results 24hrs Laboratory Tests Test 02/15/19 04:42 White Blood Count 12.5 H Red Blood Count 4.34 Hemoglobin 13.1 Hematocrit 37.9 Mean Corpuscular Volume 87.3 Mean Corpuscular Hemoglobin 30.2 Mean Corpuscular Hemoglobin Concent 34.6 Red Cell Distribution Width 11.9 Platelet Count 253 Mean Platelet Volume 10.5 H Immature Granulocytes % 0.400 Neutrophils % 68.8 Lymphocytes % 18.2 Monocytes % 9.7 Eosinophils % 2.6 Basophils % 0.3 Nucleated Red Blood Cells % 0.0 Immature Granulocytes # 0.050 H Neutrophils # 8.6 H Lymphocytes # 2.3 Monocytes # 1.2 H Eosinophils # 0.3 Basophils # 0.0 Nucleated Red Blood Cells # 0.0 Sodium Level 137 Potassium Level 3.6 Chloride Level 106 Carbon Dioxide Level 24 Anion Gap 7 Blood Urea Nitrogen 4 L Creatinine 0.51 Est Glomerular Filtrat Rate mL/min > 60 Glucose Level 105 Calcium Level 9.2 Subjective 24 Hr Interval Summary Free Text/Dictation steady improvement, a little gaseous Exam/Review of Systems Exam Vitals Vital Signs Date Temp Pulse Resp B/P (MAP) Pulse Ox O2 O2 Flow FiO2 Time Delivery Rate 02/15/19 97.8 108 18 133/91 98 Room Air 15:05 (105) 02/12/19 2.0 20:00 Intake and Output 02/14/19 02/14/19 02/15/19 1515:00 23:00 07:00 IntakeIntake Total 950 ml 700 ml 200 ml OutputOutput Total 110 ml 40 ml 65 ml BalanceBalance 840 ml 660 ml 135 ml Exam c/d/i drains in place Results Results 24hrs Laboratory Tests Test 02/15/19 04:42 White Blood Count 12.5 H Red Blood Count 4.34 Hemoglobin 13.1 Hematocrit 37.9 Mean Corpuscular Volume 87.3 Mean Corpuscular Hemoglobin 30.2 Mean Corpuscular Hemoglobin Concent 34.6 Red Cell Distribution Width 11.9 Platelet Count 253 Mean Platelet Volume 10.5 H Immature Granulocytes % 0.400 Neutrophils % 68.8 Lymphocytes % 18.2 Monocytes % 9.7 Eosinophils % 2.6 Basophils % 0.3 Nucleated Red Blood Cells % 0.0 Immature Granulocytes # 0.050 H Neutrophils # 8.6 H Lymphocytes # 2.3 Monocytes # 1.2 H Eosinophils # 0.3 Basophils # 0.0 Nucleated Red Blood Cells # 0.0 Sodium Level 137 Potassium Level 3.6 Chloride Level 106 Carbon Dioxide Level 24 Anion Gap 7 Blood Urea Nitrogen 4 L Creatinine 0.51 Est Glomerular Filtrat Rate mL/min > 60 Glucose Level 105 Calcium Level 9.2 Medications Medication Current Medications Pantoprazole (Protonix Iv) 40 mg DAILY@06 IV Last administered on 02/15/19 05:08; Admin Dose 40 MG; Start 02/12/19 at 06:00 Naloxone HCl (Narcan) 0.2 mg Q2M PRN IV RR 8 BREATHS/MIN OR LESS; Start 02/11/19 at 13:30 Diphenhydramine HCl (Benadryl) 25 mg Q6H PRN IV ITCHING Last administered on 02/12/19at 11:06; Admin Dose 25 MG; Start 02/12/19 at 08:30 Hydromorphone HCl (Dilaudid PATTERN RULER) Q4PCA IV Last administered on 02/15/19at 14:00; Admin Dose 6 MG; Start 02/12/19 at 11:30 Lorazepam (Ativan) 1 mg HS PRN IV SLEEP Last administered on 02/13/19at 02:08; Admin Dose 1 MG; Start 02/13/19 at 02:00 Radha HERNANDEZ February 15, 2019 17:34
[2019-02-15] MEDS: 1/2 NS + KCL 20 MEQ 1,000 ML IV SCH ×2 (18:38→22:29)
[2019-02-15] MEDS ORDERED: SOD CHLORIDE 0.9% 1,000 ML IV ONE (19:00)
[2019-02-16] VITALS (10 sets, daily range): BP systolic 130–136; BP diastolic 68–96; PULSE 98–128; RESP 18–20
[2019-02-16] MEDS: PANTOPRAZOLE 40 MG INJ IV SCH (06:01)
[2019-02-16] MEDS: ONDANSETRON 4 MG INJ IV PRN ×2 (06:14→17:58)
[2019-02-16] MEDS: HYDROmorphONE 0.2 MG/ML PCA IV SCH ×2 (08:04→20:21)
--- NOTE | 2019-02-16 12:48 | PN ---
Date/Time of Note Date/Time of Note DATE: 02/16/19 TIME: 12:43 Assessment/Plan VTE Prophylaxis Risk score (from Ns)>0 risk: 3 SCD applied (from Ns): Yes Pharmacological prophylaxis: NA/contraindicated Pharm contraindication: surgical contra Lines/Catheters IV Catheter Type (from Nrsg): Peripheral IV Urinary Cath still in place: No Assessment/Plan Hospital Course Patient developed tachycardia with heart rate all the way to 140s last night status post IV fluid bolus, patient was transferred to telemetry, currently in sinus rate sinus tach with rate from 80-110. Any chest pain denies shortness of breath, patient continues on EXT JS DEVELOPER Dilaudid, currently on a clear liquid diet, denies nausea. Assessment/Plan -Gastric cancer, status post laparoscopic subtotal gastrectomy. Change IV fluids and postoperative antibiotics. Continue EXT JS DEVELOPER Dilaudid as needed for pain and Zofran as needed for nausea. Advance diet per surgery. Recommendations based on clinical course. Plan of care discussed with Dr. Busch. Result Diagram: 02/15/1944102/15/19441 Exam/Review of Systems Exam Vitals Vital Signs Date Temp Pulse Resp B/P (MAP) Pulse Ox O2 O2 Flow FiO2 Time Delivery Rate 02/16/19 98.3 107 20 136/86 100 Room Air 11:18 (103) 02/12/19 2.0 20:00 Intake and Output 02/15/19 02/15/19 02/16/19 1515:00 23:00 07:00 IntakeIntake Total 400 ml 315 ml OutputOutput Total 170 ml BalanceBalance 400 ml 145 ml Exam Constitutional: alert, oriented Respiratory: clear to auscultation Cardiovascular: nl pulses Gastrointestinal: soft, other (Status post surgery with multiple incisions intact with amarilis, JENNA drains) Extremities: normal pulses Neurological: nl mental status Medications Medication Current Medications Pantoprazole (Protonix Iv) 40 mg DAILY@06 IV Last administered on 02/16/19at 06:01; Admin Dose 40 MG; Start 02/12/19 at 06:00 Naloxone HCl (Narcan) 0.2 mg Q2M PRN IV RR 8 BREATHS/MIN OR LESS; Start 02/11/19 at 13:30 Diphenhydramine HCl (Benadryl) 25 mg Q6H PRN IV ITCHING Last administered on 02/12/19 11:06; Admin Dose 25 MG; Start 02/12/19 at 08:30 Hydromorphone HCl (Dilaudid EXT JS DEVELOPER) Q4PCA IV Last administered on 02/16/19 08: 04; Admin Dose 30 MG; Start 02/12/19 at 11:30 Lorazepam (Ativan) 1 mg HS PRN IV SLEEP Last administered on 02/13/19 02:08; Admin Dose 1 MG; Start 02/13/19 at 02:00 Potassium Chloride/Sodium Chloride 1,000 ml @ 75 mls/hr [id number] IV Last administered on 02/15/19 22:29; Admin Dose 75 MLS/HR; Start 02/15/19 at 18:00 Ondansetron HCl (Zofran Inj) 4 mg Q6H PRN IV NAUSEA AND/OR VOMITING Last administered on 02/16/19 06:14; Admin Dose 4 MG; Start 02/15/19 at 23:00 RADHA ENRIQUEZ February 16, 2019 12:48
[2019-02-16] MEDS: 1/2 NS + KCL 20 MEQ 1,000 ML IV SCH (20:53)
[2019-02-17] VITALS (11 sets, daily range): BP systolic 124–153; BP diastolic 69–86; PULSE 77–109; RESP 18–19
[2019-02-17] MEDS: PANTOPRAZOLE 40 MG INJ IV SCH (06:23)
[2019-02-17] MEDS: HYDROmorphONE 0.2 MG/ML PCA IV SCH ×2 (07:42→22:06)
[2019-02-17] MEDS: 1/2 NS + KCL 20 MEQ 1,000 ML IV SCH ×3 (10:10→23:32)
--- NOTE | 2019-02-17 11:30 | PN ---
Date/Time of Note Date/Time of Note DATE: 02/17/19 TIME: 11:28 Assessment/Plan VTE Prophylaxis Risk score (from Nsg)>0 risk: 5 SCD applied (from Nsg): Yes Pharmacological prophylaxis: other Lines/Catheters IV Catheter Type (from Nrsg): Peripheral IV Urinary Cath still in place: No Assessment/Plan Assessment/Plan s/p lap subtotal gastrectomy with expected postop course will need additional time due to pain issues possible dc in one or two days Result Diagram: 02/17/19 0709 02/17/19 0709 Results 24hrs Laboratory Tests Test 02/16/19 14:08 02/17/19 07:09 White Blood Count 13.1 H 11.3 H Red Blood Count 4.50 3.92 L Hemoglobin 13.7 11.8 L Hematocrit 39.4 34.1 L Mean Corpuscular Volume 87.6 87.0 Mean Corpuscular Hemoglobin 30.4 30.1 Mean Corpuscular Hemoglobin Concent 34.8 34.6 Red Cell Distribution Width 12.3 12.2 Platelet Count 311 # 276 Mean Platelet Volume 10.4 10.7 H Immature Granulocytes % 0.500 H 0.400 Neutrophils % 68.0 58.1 Lymphocytes % 21.0 28.3 Monocytes % 8.2 8.6 Eosinophils % 1.9 4.1 Basophils % 0.4 0.5 Nucleated Red Blood Cells % 0.0 0.0 Immature Granulocytes # 0.060 H 0.050 H Neutrophils # 8.9 H 6.6 Lymphocytes # 2.8 3.2 H Monocytes # 1.1 H 1.0 H Eosinophils # 0.3 0.5 Basophils # 0.1 0.1 Nucleated Red Blood Cells # 0.0 0.0 Sodium Level 135 136 Potassium Level 4.2 3.5 Chloride Level 102 102 Carbon Dioxide Level 25 24 Anion Gap 8 10 Blood Urea Nitrogen 4 L 3 L Creatinine 0.54 0.50 Est Glomerular Filtrat Rate mL/min > 60 > 60 Glucose Level 108 78 Calcium Level 9.1 8.8 Magnesium Level 1.8 Troponin I < 0.012 Subjective 24 Hr Interval Summary Free Text/Dictation patient has one episode of vomiting yesterday but otherwise has been tolerating diet left flank drain which was placed near the GJ anastomosis has been serosanguinous and no enteric contents. It has been leaking and with minimal amount and was removed at bedside Exam/Review of Systems Exam Vitals Vital Signs Date Temp Pulse Resp B/P (MAP) Pulse Ox O2 O2 Flow FiO2 Time Delivery Rate 02/17/19 98.3 88 18 128/69 97 11:10 (88) 02/16/19 Room Air 14:56 Intake and Output 02/16/19 02/16/19 02/17/19 1515:00 23:00 07:00 IntakeIntake Total 400 ml 720 ml 1250 ml OutputOutput Total 1455 ml BalanceBalance 400 ml -735 ml 1250 ml Exam c/d/i right flank JENNA in place serosanguinous Results Results 24hrs Laboratory Tests Test 02/16/19 14:08 02/17/19 07:09 White Blood Count 13.1 H 11.3 H Red Blood Count 4.50 3.92 L Hemoglobin 13.7 11.8 L Hematocrit 39.4 34.1 L Mean Corpuscular Volume 87.6 87.0 Mean Corpuscular Hemoglobin 30.4 30.1 Mean Corpuscular Hemoglobin Concent 34.8 34.6 Red Cell Distribution Width 12.3 12.2 Platelet Count 311 # 276 Mean Platelet Volume 10.4 10.7 H Immature Granulocytes % 0.500 H 0.400 Neutrophils % 68.0 58.1 Lymphocytes % 21.0 28.3 Monocytes % 8.2 8.6 Eosinophils % 1.9 4.1 Basophils % 0.4 0.5 Nucleated Red Blood Cells % 0.0 0.0 Immature Granulocytes # 0.060 H 0.050 H Neutrophils # 8.9 H 6.6 Lymphocytes # 2.8 3.2 H Monocytes # 1.1 H 1.0 H Eosinophils # 0.3 0.5 Basophils # 0.1 0.1 Nucleated Red Blood Cells # 0.0 0.0 Sodium Level 135 136 Potassium Level 4.2 3.5 Chloride Level 102 102 Carbon Dioxide Level 25 24 Anion Gap 8 10 Blood Urea Nitrogen 4 L 3 L Creatinine 0.54 0.50 Est Glomerular Filtrat Rate mL/min > 60 > 60 Glucose Level 108 78 Calcium Level 9.1 8.8 Magnesium Level 1.8 Troponin I < 0.012 Medications Medication Current Medications Pantoprazole (Protonix Iv) 40 mg DAILY@06 IV Last administered on 02/17/19at 06:23; Admin Dose 40 MG; Start 02/12/19 at 06:00 Naloxone HCl (Narcan) 0.2 mg Q2M PRN IV RR 8 BREATHS/MIN OR LESS; Start 02/11/19 at 13:30 Diphenhydramine HCl (Benadryl) 25 mg Q6H PRN IV ITCHING Last administered on 02/12/19 11:06; Admin Dose 25 MG; Start 02/12/19 at 08:30 Hydromorphone HCl (Dilaudid CARPET REPAIRER) Q4PCA IV Last administered on 02/17/19 07:42; Admin Dose 6 MG; Start 02/12/19 at 11:30 Lorazepam (Ativan) 1 mg HS PRN IV SLEEP Last administered on 02/13/19 02:08; Admin Dose 1 MG; Start 02/13/19 at 02:00 Potassium Chloride/Sodium Chloride 1,000 ml @ 75 mls/hr [id number] IV Last administered on 02/17/19at 10:10; Admin Dose 75 MLS/HR; Start 02/15/19 at 18:00 Ondansetron HCl (Zofran Inj) 4 mg Q6H PRN IV NAUSEA AND/OR VOMITING Last administered on 02/16/19 17:58; Admin Dose 4 MG; Start 02/15/19 at 23:00 Radha HERNANDEZ February 17, 2019 11:30
--- NOTE | 2019-02-17 14:32 | PN ---
Date/Time of Note Date/Time of Note DATE: 02/17/19 TIME: 14:22 Assessment/Plan VTE Prophylaxis Risk score (from Ns)>0 risk: 5 SCD applied (from Ns): Yes Pharmacological prophylaxis: NA/contraindicated Pharm contraindication: surgical contra Lines/Catheters IV Catheter Type (from Nrs): Peripheral IV Urinary Cath still in place: No Assessment/Plan Hospital Course Patient is still tachycardic however heart rate improved to compare to yesterday, patient continues on UPTWIST SPINNER Dilaudid as needed for pain, started on mechanical soft diet last night, continue current care. Assessment/Plan -Gastric cancer, status post laparoscopic subtotal gastrectomy. Change IV fluids and postoperative antibiotics. Continue UPTWIST SPINNER Dilaudid as needed for pain and Zofran as needed for nausea. Advance diet per surgery. Further recommendations based on clinical course. Plan of care discussed with Dr. Busch. Result Diagram: 02/17/19 0709 02/17/19 0709 Results 24hrs Laboratory Tests Test 02/17/19 07:09 White Blood Count 11.3 H Red Blood Count 3.92 L Hemoglobin 11.8 L Hematocrit 34.1 L Mean Corpuscular Volume 87.0 Mean Corpuscular Hemoglobin 30.1 Mean Corpuscular Hemoglobin Concent 34.6 Red Cell Distribution Width 12.2 Platelet Count 276 Mean Platelet Volume 10.7 H Immature Granulocytes % 0.400 Neutrophils % 58.1 Lymphocytes % 28.3 Monocytes % 8.6 Eosinophils % 4.1 Basophils % 0.5 Nucleated Red Blood Cells % 0.0 Immature Granulocytes # 0.050 H Neutrophils # 6.6 Lymphocytes # 3.2 H Monocytes # 1.0 H Eosinophils # 0.5 Basophils # 0.1 Nucleated Red Blood Cells # 0.0 Sodium Level 136 Potassium Level 3.5 Chloride Level 102 Carbon Dioxide Level 24 Anion Gap 10 Blood Urea Nitrogen 3 L Creatinine 0.50 Est Glomerular Filtrat Rate mL/min > 60 Glucose Level 78 Calcium Level 8.8 Exam/Review of Systems Exam Vitals Vital Signs Date Temp Pulse Resp B/P (MAP) Pulse Ox O2 O2 Flow FiO2 Time Delivery Rate 02/17/19 92 12:00 02/17/19 98.3 18 128/69 97 11:10 (88) 02/16/19 Room Air 14:56 Intake and Output 02/16/19 02/16/19 02/17/19 1515:00 23:00 07:00 IntakeIntake Total 400 ml 720 ml 1250 ml OutputOutput Total 1455 ml BalanceBalance 400 ml -735 ml 1250 ml Exam Constitutional: alert, oriented Respiratory: clear to auscultation Cardiovascular: nl pulses Gastrointestinal: soft, other (Status post surgery with multiple incisions intact with amarilis, JENNA drains) Extremities: normal pulses Neurological: nl mental status Results Results 24hrs Laboratory Tests Test 02/17/19 07:09 White Blood Count 11.3 H Red Blood Count 3.92 L Hemoglobin 11.8 L Hematocrit 34.1 L Mean Corpuscular Volume 87.0 Mean Corpuscular Hemoglobin 30.1 Mean Corpuscular Hemoglobin Concent 34.6 Red Cell Distribution Width 12.2 Platelet Count 276 Mean Platelet Volume 10.7 H Immature Granulocytes % 0.400 Neutrophils % 58.1 Lymphocytes % 28.3 Monocytes % 8.6 Eosinophils % 4.1 Basophils % 0.5 Nucleated Red Blood Cells % 0.0 Immature Granulocytes # 0.050 H Neutrophils # 6.6 Lymphocytes # 3.2 H Monocytes # 1.0 H Eosinophils # 0.5 Basophils # 0.1 Nucleated Red Blood Cells # 0.0 Sodium Level 136 Potassium Level 3.5 Chloride Level 102 Carbon Dioxide Level 24 Anion Gap 10 Blood Urea Nitrogen 3 L Creatinine 0.50 Est Glomerular Filtrat Rate mL/min > 60 Glucose Level 78 Calcium Level 8.8 Medications Medication Current Medications Pantoprazole (Protonix Iv) 40 mg DAILY@06 IV Last administered on 02/17/19at 06:23; Admin Dose 40 MG; Start 02/12/19 at 06:00 Naloxone HCl (Narcan) 0.2 mg Q2M PRN IV RR 8 BREATHS/MIN OR LESS; Start 02/11/19 at 13:30 Diphenhydramine HCl (Benadryl) 25 mg Q6H PRN IV ITCHING Last administered on 02/12/19at 11:06; Admin Dose 25 MG; Start 02/12/19 at 08:30 Hydromorphone HCl (Dilaudid UPTWIST SPINNER) Q4PCA IV Last administered on 02/17/19at 07:42; Admin Dose 6 MG; Start 02/12/19 at 11:30 Lorazepam (Ativan) 1 mg HS PRN IV SLEEP Last administered on 02/13/19at 02:08; Admin Dose 1 MG; Start 02/13/19 at 02:00 Potassium Chloride/Sodium Chloride 1,000 ml @ 75 mls/hr [id number] IV Last administered on 02/17/19at 10:10; Admin Dose 75 MLS/HR; Start 02/15/19 at 18:00 Ondansetron HCl (Zofran Inj) 4 mg Q6H PRN IV NAUSEA AND/OR VOMITING Last administered on 02/16/19at 17:58; Admin Dose 4 MG; Start 02/15/19 at 23:00 RADHA ENRIQUEZ February 17, 2019 14:32
[2019-02-18] VITALS (11 sets, daily range): BP systolic 115–142; BP diastolic 74–94; PULSE 96–119; RESP 18–20
[2019-02-18] MEDS: LORAZEPAM 2 MG INJ IV PRN (02:11)
[2019-02-18] MEDS: PANTOPRAZOLE 40 MG INJ IV SCH (08:10)
--- NOTE | 2019-02-18 08:26 | PN ---
Date/Time of Note Date/Time of Note DATE: 02/18/19 TIME: 08:23 Assessment/Plan VTE Prophylaxis Risk score (from Ns)>0 risk: 5 SCD applied (from [facility] Yes SCD contraindicated: other Pharmacological prophylaxis: other Pharm contraindication: other Lines/Catheters IV Catheter Type (from [facility]): Saline Lock Urinary Cath still in place: No Assessment/Plan Assessment/Plan - Hypokalemia- replace K; am BMP -Gastric cancer - status post laparoscopic subtotal gastrectomy. - IV fluids and postoperative antibiotics. - Continue DEBONE PROCESSING SUPERVISOR Dilaudid as needed for pain and Zofran as needed for nausea. - Advance diet per surgery. Further recommendations based on clinical course. Plan of care discussed with Dr. Busch. Result Diagram: 02/18/1960402/18/19604 Results 24hrs Laboratory Tests Test 02/18/19 06:05 White Blood Count 9.9 Red Blood Count 3.71 L Hemoglobin 11.2 L Hematocrit 32.4 L Mean Corpuscular Volume 87.3 Mean Corpuscular Hemoglobin 30.2 Mean Corpuscular Hemoglobin Concent 34.6 Red Cell Distribution Width 12.0 Platelet Count 275 Mean Platelet Volume 10.1 Immature Granulocytes % 0.600 H Neutrophils % 59.5 Lymphocytes % 27.4 Monocytes % 8.7 Eosinophils % 3.3 Basophils % 0.5 Nucleated Red Blood Cells % 0.0 Immature Granulocytes # 0.060 H Neutrophils # 5.9 Lymphocytes # 2.7 Monocytes # 0.9 Eosinophils # 0.3 Basophils # 0.1 Nucleated Red Blood Cells # 0.0 Sodium Level 139 Potassium Level 3.4 L Chloride Level 103 Carbon Dioxide Level 29 Anion Gap 7 Blood Urea Nitrogen 2 L Creatinine 0.47 Est Glomerular Filtrat Rate mL/min > 60 Glucose Level 90 Calcium Level 8.5 Subjective 24 Hr Interval Summary Free Text/Dictation afebrile Hypokalemia- replace K; fu a BMP No events reported overnight dw staff Eyes: no complaints ENT: no complaints Respiratory: no complaints Cardiovascular: no complaints Gastrointestinal: pain Musculoskeletal: no complaints Skin: no complaints Neurologic: no complaints Endocrine: no complaints Exam/Review of Systems Exam Vitals Vital Signs Date Temp Pulse Resp B/P (MAP) Pulse Ox O2 O2 Flow FiO2 Time Delivery Rate 02/18/19 18 08:03 02/18/19 98.1 119 127/81 97 Room Air 07:19 (96) Intake and Output 02/17/19 02/17/19 02/18/19 1515:00 23:00 07:00 IntakeIntake Total 1000 ml 1200 ml OutputOutput Total 250 ml BalanceBalance 1000 ml 950 ml Constitutional: alert, well developed Psych: nl mood/affect Eyes: nl lids, nl sclera ENMT: nl external ears & nose Cardiovascular: nl pulses, other (s1s2) Gastrointestinal: soft, other (amarilis intact) Musculoskeletal: nl extremities to inspection Extremities: normal pulses Neurological: nl speech Lymph: nontender Results Results 24hrs Laboratory Tests Test 02/18/19 06:05 White Blood Count 9.9 Red Blood Count 3.71 L Hemoglobin 11.2 L Hematocrit 32.4 L Mean Corpuscular Volume 87.3 Mean Corpuscular Hemoglobin 30.2 Mean Corpuscular Hemoglobin Concent 34.6 Red Cell Distribution Width 12.0 Platelet Count 275 Mean Platelet Volume 10.1 Immature Granulocytes % 0.600 H Neutrophils % 59.5 Lymphocytes % 27.4 Monocytes % 8.7 Eosinophils % 3.3 Basophils % 0.5 Nucleated Red Blood Cells % 0.0 Immature Granulocytes # 0.060 H Neutrophils # 5.9 Lymphocytes # 2.7 Monocytes # 0.9 Eosinophils # 0.3 Basophils # 0.1 Nucleated Red Blood Cells # 0.0 Sodium Level 139 Potassium Level 3.4 L Chloride Level 103 Carbon Dioxide Level 29 Anion Gap 7 Blood Urea Nitrogen 2 L Creatinine 0.47 Est Glomerular Filtrat Rate mL/min > 60 Glucose Level 90 Calcium Level 8.5 Medications Medication Current Medications Pantoprazole (Protonix Iv) 40 mg DAILY@06 IV Last administered on 02/18/19at 08:10; Admin Dose 40 MG; Start 02/12/19 at 06:00 Naloxone HCl (Narcan) 0.2 mg Q2M PRN IV RR 8 BREATHS/MIN OR LESS; Start 02/11/19 at 13:30 Diphenhydramine HCl (Benadryl) 25 mg Q6H PRN IV ITCHING Last administered on 02/12/19at 11:06; Admin Dose 25 MG; Start 02/12/19 at 08:30 Hydromorphone HCl (Dilaudid DEBONE PROCESSING SUPERVISOR) Q4PCA IV Last administered on 02/17/19at 22:06; Admin Dose 6 MG; Start 02/12/19 at 11:30 Lorazepam (Ativan) 1 mg HS PRN IV SLEEP Last administered on 02/18/19at 02:11; Admin Dose 1 MG; Start 02/13/19 at 02:00 Potassium Chloride/Sodium Chloride 1,000 ml @ 75 mls/hr [id number] IV Last administered on 02/17/19at 23:32; Admin Dose 75 MLS/HR; Start 02/15/19 at 18:00 Ondansetron HCl (Zofran Inj) 4 mg Q6H PRN IV NAUSEA AND/OR VOMITING Last administered on 02/16/19at 17:58; Admin Dose 4 MG; Start 02/15/19 at 23:00 JEFFERSON ABRAHAM February 18, 2019 08:26
[2019-02-18] MEDS: HYDROmorphONE 0.2 MG/ML PCA IV SCH (13:55)
--- NOTE | 2019-02-18 14:22 | PN ---
Date/Time of Note Date/Time of Note DATE: 02/18/19 TIME: 14:21 Assessment/Plan VTE Prophylaxis Risk score (from Ns)>0 risk: 5 SCD applied (from Ns): Yes Pharmacological prophylaxis: other Lines/Catheters IV Catheter Type (from Nrs): Saline Lock Urinary Cath still in place: No Assessment/Plan Assessment/Plan s/p lap subtotal gastrectomy dc home when patient feels comfortable Result Diagram: 02/18/1905 02/18/19 0605 Results 24hrs Laboratory Tests Test 02/18/19 06:05 White Blood Count 9.9 Red Blood Count 3.71 L Hemoglobin 11.2 L Hematocrit 32.4 L Mean Corpuscular Volume 87.3 Mean Corpuscular Hemoglobin 30.2 Mean Corpuscular Hemoglobin Concent 34.6 Red Cell Distribution Width 12.0 Platelet Count 275 Mean Platelet Volume 10.1 Immature Granulocytes % 0.600 H Neutrophils % 59.5 Lymphocytes % 27.4 Monocytes % 8.7 Eosinophils % 3.3 Basophils % 0.5 Nucleated Red Blood Cells % 0.0 Immature Granulocytes # 0.060 H Neutrophils # 5.9 Lymphocytes # 2.7 Monocytes # 0.9 Eosinophils # 0.3 Basophils # 0.1 Nucleated Red Blood Cells # 0.0 Sodium Level 139 Potassium Level 3.4 L Chloride Level 103 Carbon Dioxide Level 29 Anion Gap 7 Blood Urea Nitrogen 2 L Creatinine 0.47 Est Glomerular Filtrat Rate mL/min > 60 Glucose Level 90 Calcium Level 8.5 Subjective 24 Hr Interval Summary Free Text/Dictation patient doing well and tolerating diet Exam/Review of Systems Exam Vitals Vital Signs Date Temp Pulse Resp B/P (MAP) Pulse Ox O2 O2 Flow FiO2 Time Delivery Rate 02/18/19 112 12:34 02/18/19 20 12:00 02/18/19 98.7 119/80 97 Room Air 11:13 (93) Intake and Output 02/17/19 02/17/19 02/18/19 1515:00 23:00 07:00 IntakeIntake Total 1000 ml 1200 ml OutputOutput Total 250 ml BalanceBalance 1000 ml 950 ml Exam c/d/i remaining drain removed low amount of serous drainage as expected Results Results 24hrs Laboratory Tests Test 02/18/19 06:05 White Blood Count 9.9 Red Blood Count 3.71 L Hemoglobin 11.2 L Hematocrit 32.4 L Mean Corpuscular Volume 87.3 Mean Corpuscular Hemoglobin 30.2 Mean Corpuscular Hemoglobin Concent 34.6 Red Cell Distribution Width 12.0 Platelet Count 275 Mean Platelet Volume 10.1 Immature Granulocytes % 0.600 H Neutrophils % 59.5 Lymphocytes % 27.4 Monocytes % 8.7 Eosinophils % 3.3 Basophils % 0.5 Nucleated Red Blood Cells % 0.0 Immature Granulocytes # 0.060 H Neutrophils # 5.9 Lymphocytes # 2.7 Monocytes # 0.9 Eosinophils # 0.3 Basophils # 0.1 Nucleated Red Blood Cells # 0.0 Sodium Level 139 Potassium Level 3.4 L Chloride Level 103 Carbon Dioxide Level 29 Anion Gap 7 Blood Urea Nitrogen 2 L Creatinine 0.47 Est Glomerular Filtrat Rate mL/min > 60 Glucose Level 90 Calcium Level 8.5 Medications Medication Current Medications Pantoprazole (Protonix Iv) 40 mg DAILY@06 IV Last administered on 02/18/19 08:10; Admin Dose 40 MG; Start 02/12/19 at 06:00 Naloxone HCl (Narcan) 0.2 mg Q2M PRN IV RR 8 BREATHS/MIN OR LESS; Start 02/11/19 at 13:30 Diphenhydramine HCl (Benadryl) 25 mg Q6H PRN IV ITCHING Last administered on 02/12/19 11:06; Admin Dose 25 MG; Start 02/12/19 at 08:30 Hydromorphone HCl (Dilaudid MATERIAL LOADER) Q4PCA IV Last administered on 02/18/19 13:55; Admin Dose 6 MG; Start 02/12/19 at 11:30 Lorazepam (Ativan) 1 mg HS PRN IV SLEEP Last administered on 02/18/19 02:11; Admin Dose 1 MG; Start 02/13/19 at 02:00 Ondansetron HCl (Zofran Inj) 4 mg Q6H PRN IV NAUSEA AND/OR VOMITING Last administered on 02/16/19 17:58; Admin Dose 4 MG; Start 02/15/19 at 23:00 Radha HERNANDEZ February 18, 2019 14:22
[2019-02-18] MEDS: morphine 2 MG INJ IV PRN ×4 (16:34→23:46)
[2019-02-18] MEDS: DOCUSATE SODIUM 100 MG CAP PO SCH (20:42)
[2019-02-18] MEDS ORDERED: POTASSIUM CHLORIDE (SR) 20 MEQ TAB PO ONE (21:00)
[2019-02-18] MEDS: ONDANSETRON 4 MG INJ IV PRN (21:28)
[2019-02-19] VITALS (11 sets, daily range): BP systolic 114–144; BP diastolic 69–90; PULSE 79–123; RESP 18–19
[2019-02-19] MEDS: morphine 2 MG INJ IV PRN ×6 (02:58→14:12)
[2019-02-19] MEDS: HYDROCODONE/APAP (5/325) TAB PO PRN ×2 (04:40→11:04)
[2019-02-19] MEDS: PANTOPRAZOLE 40 MG INJ IV SCH (05:04)
[2019-02-19] MEDS: ONDANSETRON 4 MG INJ IV PRN ×3 (06:53→18:45)
[2019-02-19] MEDS: DOCUSATE SODIUM 100 MG CAP PO SCH ×2 (09:20→20:56)
--- NOTE | 2019-02-19 11:30 | PN ---
Date/Time of Note Date/Time of Note DATE: 02/19/19 TIME: 11:30 Assessment/Plan VTE Prophylaxis Risk score (from Ns)>0 risk: 7 SCD applied (from Ns): Yes Pharmacological prophylaxis: LMWH Lines/Catheters IV Catheter Type (from Nrsg): Saline Lock Urinary Cath still in place: No Assessment/Plan Hospital Course - Hypokalemia- replace K; am BMP -Gastric cancer - status post laparoscopic subtotal gastrectomy. - IV fluids and postoperative antibiotics. - Continue SENIOR UNIX ADMINISTRATOR Dilaudid as needed for pain and Zofran as needed for nausea. - Advance diet per surgery. Result Diagram: 02/19/1961902/19/1920 Results 24hrs Laboratory Tests Test 02/19/19 06:20 White Blood Count 11.6 H Red Blood Count 4.18 L Hemoglobin 12.5 Hematocrit 36.6 L Mean Corpuscular Volume 87.6 Mean Corpuscular Hemoglobin 29.9 Mean Corpuscular Hemoglobin Concent 34.2 Red Cell Distribution Width 12.3 Platelet Count 381 # Mean Platelet Volume 10.4 Immature Granulocytes % 0.700 H Neutrophils % 83.2 H Lymphocytes % 10.2 L Monocytes % 5.4 Eosinophils % 0.2 Basophils % 0.3 Nucleated Red Blood Cells % 0.0 Immature Granulocytes # 0.080 H Neutrophils # 9.7 H Lymphocytes # 1.2 Monocytes # 0.6 Eosinophils # 0.0 Basophils # 0.0 Nucleated Red Blood Cells # 0.0 Sodium Level 138 Potassium Level 4.2 Chloride Level 101 Carbon Dioxide Level 28 Anion Gap 9 Blood Urea Nitrogen 3 L Creatinine 0.54 Est Glomerular Filtrat Rate mL/min > 60 Glucose Level 106 Calcium Level 9.5 Subjective 24 Hr Interval Summary Free Text/Dictation Patient complains of abdominal pain Exam/Review of Systems Exam Vitals Vital Signs Date Temp Pulse Resp B/P (MAP) Pulse Ox O2 O2 Flow FiO2 Time Delivery Rate 02/19/19 98.4 100 19 138/88 96 11:19 (105) 02/19/19 Room Air 03:44 Intake and Output 02/18/19 02/18/19 02/19/19 1515:00 23:00 07:00 IntakeIntake Total 800 ml 600 ml BalanceBalance 800 ml 600 ml Constitutional: well developed Head: normocephalic, atraumatic Neck: supple Respiratory: clear to auscultation Cardiovascular: regular rate and rhythm Gastrointestinal: soft, tender Extremities: normal pulses Results Results 24hrs Laboratory Tests Test 02/19/19 06:20 White Blood Count 11.6 H Red Blood Count 4.18 L Hemoglobin 12.5 Hematocrit 36.6 L Mean Corpuscular Volume 87.6 Mean Corpuscular Hemoglobin 29.9 Mean Corpuscular Hemoglobin Concent 34.2 Red Cell Distribution Width 12.3 Platelet Count 381 # Mean Platelet Volume 10.4 Immature Granulocytes % 0.700 H Neutrophils % 83.2 H Lymphocytes % 10.2 L Monocytes % 5.4 Eosinophils % 0.2 Basophils % 0.3 Nucleated Red Blood Cells % 0.0 Immature Granulocytes # 0.080 H Neutrophils # 9.7 H Lymphocytes # 1.2 Monocytes # 0.6 Eosinophils # 0.0 Basophils # 0.0 Nucleated Red Blood Cells # 0.0 Sodium Level 138 Potassium Level 4.2 Chloride Level 101 Carbon Dioxide Level 28 Anion Gap 9 Blood Urea Nitrogen 3 L Creatinine 0.54 Est Glomerular Filtrat Rate mL/min > 60 Glucose Level 106 Calcium Level 9.5 Medications Medication Current Medications Pantoprazole (Protonix Iv) 40 mg DAILY@06 IV Last administered on 02/19/19at 05:04; Admin Dose 40 MG; Start 02/12/19 at 06:00 Naloxone HCl (Narcan) 0.2 mg Q2M PRN IV RR 8 BREATHS/MIN OR LESS; Start 02/11/19 at 13:30 Diphenhydramine HCl (Benadryl) 25 mg Q6H PRN IV ITCHING Last administered on 02/12/19at 11:06; Admin Dose 25 MG; Start 02/12/19 at 08:30 Lorazepam (Ativan) 1 mg HS PRN IV SLEEP Last administered on 02/18/19at 02:11; Admin Dose 1 MG; Start 02/13/19 at 02:00 Ondansetron HCl (Zofran Inj) 4 mg Q6H PRN IV NAUSEA AND/OR VOMITING Last administered on 02/19/19at 06:53; Admin Dose 4 MG; Start 02/15/19 at 23:00 Acetaminophen/ Hydrocodone Bitart ([place] (5/325)) 1 tab Q4H PRN PO MODERATE PAIN LEVEL 4-6 Last administered on 02/19/19at 11:04; Admin Dose 1 TAB; Start 02/18/19 at 14:30 Morphine Sulfate (morphine) 2 mg Q2H PRN IV SEVERE PAIN LEVEL 7-10 Last administered on 02/19/19at 09:20; Admin Dose 2 MG; Start 02/18/19 at 14:30 Docusate Sodium (Colace) 100 mg BID PO Last administered on 02/19/19at 09:20; Admin Dose 100 MG; Start 02/18/19 at 21:00 ALFONSO MELCHOR Feb 19, 2019 11:30
[2019-02-19] MEDS: morphine 4 MG/ML VIAL IV PRN ×3 (15:48→20:59)
[2019-02-19] MEDS: MINERAL OIL 30ML CUP PO SCH (17:00)
[2019-02-20] VITALS (12 sets, daily range): BP systolic 106–128; BP diastolic 53–83; PULSE 80–106; RESP 18–20
--- NOTE | 2019-02-20 00:02 | PN ---
DATE: 02/19/2019 Postop day #8 status post laparoscopic subtotal gastrectomy and gastrojejunostomy for cancer of the s hoda. SUBJECTIVE: Still continues to complain of deep abdominal pain, probably colicky in nature. She req uires pain medication, namely morphine 3 mg IV every 2 hours and [place] between one tablet to control the pain. No vomiting. Probably positive for nausea. No bowel movement for 8 days. Passing gas. OBJECTIVE: GENERAL: Awake, alert, oriented. VITAL SIGNS: Temperature maximum 98.8, heart rate fluctuating between 80 and 104, actually has 1 epi sode of 121 today at 4:00 a.m., respirations 18, blood pressure 114/75, saturation 96% on room air. LABORATORY DATA: Sodium, potassium normal, BUN and creatinine normal. Hematology: WBC 11,600 with 83% segmented, which is shift to the left, hemoglobin 12.5, hematocrit 36.6. Urinalysis which was do ne today shows urine, 2+ ketones, 47 red blood cell, 6 WBC, many yeast, and 3+ hemoglobin. PHYSICAL EXAMINATION: HEART: Regular tachycardia. LUNGS: Clear. Decreased breathing sound at bases. ABDOMEN: Soft, flat, not distended. Wounds: Skin incisions are clean. Abdomen is not distended wi th gas. Bowel sounds are present, maybe 3+/4+. I have seen the patient about a week ago and today, she looks like that she has lost some weight on f acial appearance. IMPRESSION: Status post subtotal gastrectomy with gastrojejunostomy [id number]. Today, patient has l eukocytosis, shift to the left. Appetite is not good, even though the patient has been started on so ft diet. No bowel movement for 8 days. It appears that patient has been losing weight. Because of the nature of this pain and the cause of this pain is not clear to me, I am going to order a KUB today and then reevaluate the patient tomorrow and I may order an upper GI small bowel follow through for tomorrow or for Thursday and also request aerologist to evaluate the patient. Dictated By: BECKA GEORGE MD PS/NTS Conf#: [id number] DID#: [id number]
[2019-02-20] MEDS: morphine 4 MG/ML VIAL IV PRN ×3 (01:36→08:44)
[2019-02-20] MEDS: PANTOPRAZOLE 40 MG INJ IV SCH (05:19)
[2019-02-20] MEDS: MINERAL OIL 30ML CUP PO SCH ×3 (08:43→23:24)
[2019-02-20] MEDS: DOCUSATE SODIUM 100 MG CAP PO SCH ×2 (08:43→20:08)
--- NOTE | 2019-02-20 10:47 | PN ---
Date/Time of Note Date/Time of Note DATE: 02/20/19 TIME: 10:47 Assessment/Plan VTE Prophylaxis Risk score (from Ns)>0 risk: 3 SCD applied (from Ns): Yes Pharmacological prophylaxis: LMWH Lines/Catheters IV Catheter Type (from Nrsg): Saline Lock Urinary Cath still in place: No Assessment/Plan Hospital Course - Hypokalemia- replace K; am BMP -Gastric cancer - status post laparoscopic subtotal gastrectomy. - IV fluids and postoperative antibiotics. - Continue WELL DRILLER Dilaudid as needed for pain and Zofran as needed for nausea. - Advance diet per surgery. Result Diagram: 02/20/19 0550 02/20/19 0550 Results 24hrs Laboratory Tests Test 02/20/19 05:50 White Blood Count 10.4 Red Blood Count 3.88 L Hemoglobin 11.7 L Hematocrit 34.4 L Mean Corpuscular Volume 88.7 Mean Corpuscular Hemoglobin 30.2 Mean Corpuscular Hemoglobin Concent 34.0 Red Cell Distribution Width 12.6 Platelet Count 370 Mean Platelet Volume 10.2 Immature Granulocytes % 0.700 H Neutrophils % 63.3 Lymphocytes % 25.1 Monocytes % 8.1 Eosinophils % 2.4 Basophils % 0.4 Nucleated Red Blood Cells % 0.0 Immature Granulocytes # 0.070 H Neutrophils # 6.6 Lymphocytes # 2.6 Monocytes # 0.8 Eosinophils # 0.3 Basophils # 0.0 Nucleated Red Blood Cells # 0.0 Sodium Level 138 Potassium Level 4.0 Chloride Level 102 Carbon Dioxide Level 29 Anion Gap 7 Blood Urea Nitrogen 7 Creatinine 0.51 Est Glomerular Filtrat Rate mL/min > 60 Glucose Level 100 Calcium Level 9.2 Total Bilirubin 0.8 Direct Bilirubin 0.00 Indirect Bilirubin 0.8 Aspartate Amino Transf (AST/SGOT) 150 H Alanine Aminotransferase (ALT/SGPT) 132 H Alkaline Phosphatase 107 Total Protein 6.1 Albumin 3.1 L Globulin 3.00 Albumin/Globulin Ratio 1.03 Subjective 24 Hr Interval Summary Free Text/Dictation Patient still have some abdominal pain Exam/Review of Systems Exam Vitals Vital Signs Date Temp Pulse Resp B/P (MAP) Pulse Ox O2 O2 Flow FiO2 Time Delivery Rate 02/20/19 80 08:01 02/20/19 98.6 18 119/77 97 07:07 (91) 02/19/19 Room Air 03:44 Intake and Output 02/19/19 02/19/19 02/20/19 1515:00 23:00 07:00 IntakeIntake Total 480 ml 350 ml BalanceBalance 480 ml 350 ml Constitutional: well developed Head: normocephalic, atraumatic Neck: supple Respiratory: clear to auscultation Cardiovascular: regular rate and rhythm Gastrointestinal: soft, non-tender Extremities: normal pulses Results Results 24hrs Laboratory Tests Test 02/20/19 05:50 White Blood Count 10.4 Red Blood Count 3.88 L Hemoglobin 11.7 L Hematocrit 34.4 L Mean Corpuscular Volume 88.7 Mean Corpuscular Hemoglobin 30.2 Mean Corpuscular Hemoglobin Concent 34.0 Red Cell Distribution Width 12.6 Platelet Count 370 Mean Platelet Volume 10.2 Immature Granulocytes % 0.700 H Neutrophils % 63.3 Lymphocytes % 25.1 Monocytes % 8.1 Eosinophils % 2.4 Basophils % 0.4 Nucleated Red Blood Cells % 0.0 Immature Granulocytes # 0.070 H Neutrophils # 6.6 Lymphocytes # 2.6 Monocytes # 0.8 Eosinophils # 0.3 Basophils # 0.0 Nucleated Red Blood Cells # 0.0 Sodium Level 138 Potassium Level 4.0 Chloride Level 102 Carbon Dioxide Level 29 Anion Gap 7 Blood Urea Nitrogen 7 Creatinine 0.51 Est Glomerular Filtrat Rate mL/min > 60 Glucose Level 100 Calcium Level 9.2 Total Bilirubin 0.8 Direct Bilirubin 0.00 Indirect Bilirubin 0.8 Aspartate Amino Transf (AST/SGOT) 150 H Alanine Aminotransferase (ALT/SGPT) 132 H Alkaline Phosphatase 107 Total Protein 6.1 Albumin 3.1 L Globulin 3.00 Albumin/Globulin Ratio 1.03 Medications Medication Current Medications Pantoprazole (Protonix Iv) 40 mg DAILY@06 IV Last administered on 02/20/19at 05:19; Admin Dose 40 MG; Start 02/12/19 at 06:00 Naloxone HCl (Narcan) 0.2 mg Q2M PRN IV RR 8 BREATHS/MIN OR LESS; Start 02/11/19 at 13:30 Diphenhydramine HCl (Benadryl) 25 mg Q6H PRN IV ITCHING Last administered on 02/12/19at 11:06; Admin Dose 25 MG; Start 02/12/19 at 08:30 Lorazepam (Ativan) 1 mg HS PRN IV SLEEP Last administered on 02/18/19 02:11; Admin Dose 1 MG; Start 02/13/19 at 02:00 Ondansetron HCl (Zofran Inj) 4 mg Q6H PRN IV NAUSEA AND/OR VOMITING Last administered on 02/19/19 18:45; Admin Dose 4 MG; Start 02/15/19 at 23:00 Acetaminophen/ Hydrocodone Bitart ([place] (5/325)) 1 tab Q4H PRN PO MODERATE PAIN LEVEL 4-6 Last administered on 02/19/19 11:04; Admin Dose 1 TAB; Start 02/18/19 at 14:30 Docusate Sodium (Colace) 100 mg BID PO Last administered on 02/20/19 08:43; Admin Dose 100 MG; Start 02/18/19 at 21:00 Morphine Sulfate (morphine) 3 mg Q2H PRN IV SEVERE PAIN LEVEL 7-10 Last administered on 02/20/19 08:44; Admin Dose 3 MG; Start 02/19/19 at 14:30 Mineral Oil (Mineral Oil) 30 ml BID PO Last administered on 02/20/19 08:43; A dmin Dose 30 ML; Start 02/19/19 at 17:00 ALFONSO MELCHOR Feb 20, 2019 10:47
[2019-02-20] MEDS: HYDROCODONE/APAP (5/325) TAB PO PRN ×2 (12:58→20:09)
[2019-02-20] MEDS ORDERED: MINERAL OIL 133 ML ENEMA PR ONE (16:00)
--- NOTE | 2019-02-20 17:14 | PN ---
DATE: 02/20/2019 I am seeing this patient on the request of Dr. Guerin, who is not available today. The patient is statu s post subtotal gastrectomy laparoscopic and gastrojejunostomy, Yuan-en-Y postop day #9. SUBJECTIVE: Still continues to complain of crampy abdominal pain all the time with exacerbation of s trength of the pain. Right now when I was examining the patient, she said it is 7/10. The patient i s receiving morphine for pain IV every 2 hours. She continues to feel nausea most of the time. No v omiting. OBJECTIVE: GENERAL: No acute distress but looks tired. VITAL SIGNS: Temperature 98.6, heart rate 99, respiration 18, blood pressure 127/83, saturation 100% room air. HEART: Regular. LUNGS: Clear. ABDOMEN: Not distended. Bowel sounds are hyperactive and at this time the patient has a lot pain in the belly. LABORATORY DATA: WBC 10,400, 63% segmented, hemoglobin 11.7, hematocrit 34.4, platelets 370. Chemis try: Sodium, potassium, BUN, creatinine within normal limits. There is elevation of AST and ALT to 150 and 132, but alkaline phosphatase is normal at 107, question of cause. DIAGNOSTIC DATA: KUB was done last night shows few loops of small bowel dilated in the upper abdomen . The radiologist has raised a question of partial obstruction. There is contrast material accumula herlinda in the colon. ASSESSMENT: A 43-year-old female postop day #1 status post subtotal gastrectomy and Yuan-en-Y gastro jejunostomy. The patient continues to have colicky abdominal pain and feel nauseous. Appetite is no t good and has not been eating enough of the food on the tray. The nurse states about 25% of the domo l she is taking. Has not had any bowel movement for 8 days. Has been passing gas. The KUB raises q uestion of partial small-bowel obstruction and also contrast material in the colon. PLAN: We will continue to give mineral oil 30 mL p.o. q.6 hour and give the patient Fleet mineral oi l enema 1 today to have a bowel movement. I am going to get an upper GI small bowel follow-through t omorrow morning with a Gastrografin contrast material. Dictated By: BECKA GEORGE MD PS/NTS Conf#: [id number] [facility]#: [id number] CC: CLAUDE GUERIN MD; KIRAN CARMEN MD;*[facility]*
[2019-02-21] VITALS (12 sets, daily range): BP systolic 111–121; BP diastolic 72–78; PULSE 80–101; RESP 18
[2019-02-21] MEDS: HYDROCODONE/APAP (5/325) TAB PO PRN (05:34)
[2019-02-21] MEDS: MINERAL OIL 30ML CUP PO SCH ×3 (05:35→18:00)
[2019-02-21] MEDS: PANTOPRAZOLE 40 MG INJ IV SCH (05:35)
[2019-02-21] MEDS: DOCUSATE SODIUM 100 MG CAP PO SCH ×2 (09:07→20:14)
[2019-02-21] MEDS ORDERED: IOHEXOL 14.3 MG(I)/ML (ADULT) BTL PO ONE (10:00)
--- NOTE | 2019-02-21 15:23 | PN ---
Date/Time of Note Date/Time of Note DATE: 02/21/19 TIME: 15:22 Assessment/Plan VTE Prophylaxis Risk score (from Ns)>0 risk: 3 [place] [facility] [place] [facility]CD contraindicated: other Pharmacological prophylaxis: other Lines/Catheters IV Catheter Type (from [facility] Saline Lock Urinary Cath still in place: No Assessment/Plan Assessment/Plan s/p lap subtotal gastrectomy slow recovery will check with CT scan for intraabdominal process Result Diagram: 02/21/19 0608 02/20/19 0550 Results 24hrs Laboratory Tests Test 02/21/19 06:08 White Blood Count 10.9 H Red Blood Count 3.70 L Hemoglobin 11.3 L Hematocrit 33.0 L Mean Corpuscular Volume 89.2 Mean Corpuscular Hemoglobin 30.5 Mean Corpuscular Hemoglobin Concent 34.2 Red Cell Distribution Width 12.4 Platelet Count 396 Mean Platelet Volume 10.1 Immature Granulocytes % 0.600 H Neutrophils % 67.9 Lymphocytes % 20.0 Monocytes % 8.5 Eosinophils % 2.5 Basophils % 0.5 Nucleated Red Blood Cells % 0.0 Immature Granulocytes # 0.070 H Neutrophils # 7.4 Lymphocytes # 2.2 Monocytes # 0.9 Eosinophils # 0.3 Basophils # 0.1 Nucleated Red Blood Cells # 0.0 Subjective 24 Hr Interval Summary Free Text/Dictation some no specific pain and nausea over the weekend but otherwise doing well and asking to go home Exam/Review of Systems Exam Vitals Vital Signs Date Temp Pulse Resp B/P (MAP) Pulse Ox O2 O2 Flow FiO2 Time Delivery Rate 02/21/19 87 12:01 02/21/19 98.7 18 119/78 100 Room Air 11:48 (92) Intake and Output 02/20/19 02/20/19 02/21/19 1515:00 23:00 07:00 IntakeIntake Total 800 ml 600 ml BalanceBalance 800 ml 600 ml Exam c/d/i soft minimal tenderness Results Results 24hrs Laboratory Tests Test 02/21/19 06:08 White Blood Count 10.9 H Red Blood Count 3.70 L Hemoglobin 11.3 L Hematocrit 33.0 L Mean Corpuscular Volume 89.2 Mean Corpuscular Hemoglobin 30.5 Mean Corpuscular Hemoglobin Concent 34.2 Red Cell Distribution Width 12.4 Platelet Count 396 Mean Platelet Volume 10.1 Immature Granulocytes % 0.600 H Neutrophils % 67.9 Lymphocytes % 20.0 Monocytes % 8.5 Eosinophils % 2.5 Basophils % 0.5 Nucleated Red Blood Cells % 0.0 Immature Granulocytes # 0.070 H Neutrophils # 7.4 Lymphocytes # 2.2 Monocytes # 0.9 Eosinophils # 0.3 Basophils # 0.1 Nucleated Red Blood Cells # 0.0 Medications Medication Current Medications Pantoprazole (Protonix Iv) 40 mg DAILY@06 IV Last administered on 02/21/19 05:35; Admin Dose 40 MG; Start 02/12/19 at 06:00 Naloxone HCl (Narcan) 0.2 mg Q2M PRN IV RR 8 BREATHS/MIN OR LESS; Start 02/11/19 at 13:30 Diphenhydramine HCl (Benadryl) 25 mg Q6H PRN IV ITCHING Last administered on 02/12/19 11:06; Admin Dose 25 MG; Start 02/12/19 at 08:30 Lorazepam (Ativan) 1 mg HS PRN IV SLEEP Last administered on 02/18/19 02:11; Admin Dose 1 MG; Start 02/13/19 at 02:00 Ondansetron HCl (Zofran Inj) 4 mg Q6H PRN IV NAUSEA AND/OR VOMITING Last administered on 02/19/19 18:45; Admin Dose 4 MG; Start 02/15/19 at 23:00 Acetaminophen/ Hydrocodone Bitart ([place] (5/325)) 1 tab Q4H PRN PO MODERATE PAIN LEVEL 4-6 Last administered on 02/21/19 05:34; Admin Dose 1 TAB; Start 02/18/19 at 14:30 Docusate Sodium (Colace) 100 mg BID PO Last administered on 02/21/19 09:07; Admin Dose 100 MG; Start 02/18/19 at 21:00 Morphine Sulfate (morphine) 3 mg Q2H PRN IV SEVERE PAIN LEVEL 7-10 Last administered on 02/20/19 08:44; Admin Dose 3 MG; Start 02/19/19 at 14:30 Mineral Oil (Mineral Oil) 30 ml Q6 PO Last administered on 02/21/19 05:35; Admin Dose 30 ML; Start 02/20/19 at 18:00 Radha HERNANDEZ Feb 21, 2019 15:23
[2019-02-21] MEDS: DIPHENHYDRAMINE 50 MG INJ IV PRN (20:14)
[2019-02-21] MEDS: ONDANSETRON 4 MG INJ IV PRN (20:14)
[2019-02-22] VITALS (12 sets, daily range): BP systolic 109–122; BP diastolic 67–74; PULSE 81–95; RESP 16–18
[2019-02-22] MEDS: MINERAL OIL 30ML CUP PO SCH ×4 (06:09→18:00)
[2019-02-22] MEDS: PANTOPRAZOLE 40 MG INJ IV SCH (06:09)
[2019-02-22] MEDS: DOCUSATE SODIUM 100 MG CAP PO SCH (09:00)
--- NOTE | 2019-02-22 09:37 | PN ---
Date/Time of Note Date/Time of Note DATE: 02/22/19 TIME: 09:36 Assessment/Plan VTE Prophylaxis Risk score (from Ns)>0 risk: 1 SCD applied (from Ns): No SCD contraindicated: other Pharmacological prophylaxis: other Lines/Catheters IV Catheter Type (from Nrsg): Saline Lock Urinary Cath still in place: No Assessment/Plan Assessment/Plan s/p lap subtotal gastrectomy for gastric cancer dc home today Result Diagram: 02/21/19 0608 02/20/19 0550 Subjective 24 Hr Interval Summary Free Text/Dictation patient doing well having bm and tolerating diet Exam/Review of Systems Exam Vitals Vital Signs Date Temp Pulse Resp B/P (MAP) Pulse Ox O2 O2 Flow FiO2 Time Delivery Rate 02/22/19 85 08:05 02/22/19 98.5 18 110/67 98 07:17 (81) 02/21/19 Room Air 16:13 Intake and Output 02/21/19 02/21/19 02/22/19 1515:00 23:00 07:00 IntakeIntake Total 400 ml 390 ml OutputOutput Total 200 ml BalanceBalance 200 ml 390 ml Exam c/d/i Medications Medication Current Medications Pantoprazole (Protonix Iv) 40 mg DAILY@06 IV Last administered on 02/22/19at 06:09; Admin Dose 40 MG; Start 02/12/19 at 06:00 Naloxone HCl (Narcan) 0.2 mg Q2M PRN IV RR 8 BREATHS/MIN OR LESS; Start 02/11/19 at 13:30 Diphenhydramine HCl (Benadryl) 25 mg Q6H PRN IV ITCHING Last administered on 02/21/19at 20:14; Admin Dose 25 MG; Start 02/12/19 at 08:30 Lorazepam (Ativan) 1 mg HS PRN IV SLEEP Last administered on 02/18/19at 02:11; Admin Dose 1 MG; Start 02/13/19 at 02:00 Ondansetron HCl (Zofran Inj) 4 mg Q6H PRN IV NAUSEA AND/OR VOMITING Last administered on 02/21/19at 20:14; Admin Dose 4 MG; Start 02/15/19 at 23:00 Acetaminophen/ Hydrocodone Bitart ([place] (5/325)) 1 tab Q4H PRN PO MODERATE PAIN LEVEL 4-6 Last administered on 02/21/19 05:34; Admin Dose 1 TAB; Start 02/18/19 at 14:30 Docusate Sodium (Colace) 100 mg BID PO Last administered on 02/21/19 20:14; Admin Dose 100 MG; Start 02/18/19 at 21:00 Morphine Sulfate (morphine) 3 mg Q2H PRN IV SEVERE PAIN LEVEL 7-10 Last administered on 02/20/19 08:44; Admin Dose 3 MG; Start 02/19/19 at 14:30 Mineral Oil (Mineral Oil) 30 ml Q6 PO Last administered on 02/22/19 06:09; Admin Dose 30 ML; Start 02/20/19 at 18:00 Radha HERNANDEZ Feb 22, 2019 09:37
--- NOTE | 2019-02-22 10:38 | PN ---
Date/Time of Note Date/Time of Note DATE: Late entry pt is seen on 02/21/19 TIME: 15:00 Assessment/Plan VTE Prophylaxis Risk score (from Nsg)>0 risk: 1 SCD applied (from Nsg): Yes Pharmacological prophylaxis: NA/contraindicated Pharm contraindication: surgical contra Lines/Catheters IV Catheter Type (from Nrsg): Saline Lock Urinary Cath still in place: No Assessment/Plan Hospital Course Patient is awake alert, pain is adequately controlled, patient with nausea and vomiting, possible small bowel obstruction patient unable to tolerate contrast for bowel follow-through due to nausea and vomiting. Assessment/Plan -Possible SBO, pending bowel follow-through study. -Gastric cancer, status post laparoscopic subtotal gastrectomy. Continue IV fluids and postoperative antibiotics. Continue Dilaudid as needed for pain and Zofran as needed for nausea. Advance diet per surgery. Further recommendations based on clinical course. Plan of care discussed with Dr. Busch. Result Diagram: 02/21/19 0608 02/20/19 0550 Exam/Review of Systems Exam Vitals Vital Signs Date Temp Pulse Resp B/P (MAP) Pulse Ox O2 O2 Flow FiO2 Time Delivery Rate 02/22/19 85 08:05 02/22/19 98.5 18 110/67 98 07:17 (81) 02/21/19 Room Air 16:13 Intake and Output 02/21/19 02/21/19 02/22/19 1515:00 23:00 07:00 IntakeIntake Total 400 ml 390 ml OutputOutput Total 200 ml BalanceBalance 200 ml 390 ml Exam Constitutional: alert, oriented Respiratory: clear to auscultation Cardiovascular: nl pulses Gastrointestinal: soft, other (Status post surgery with multiple incisions intact with amairlis) Extremities: normal pulses Neurological: nl mental status Medications Medication Current Medications Pantoprazole (Protonix Iv) 40 mg DAILY@06 IV Last administered on 02/22/19at 06:09; Admin Dose 40 MG; Start 02/12/19 at 06:00 Naloxone HCl (Narcan) 0.2 mg Q2M PRN IV RR 8 BREATHS/MIN OR LESS; Start 02/11/19 at 13:30 Diphenhydramine HCl (Benadryl) 25 mg Q6H PRN IV ITCHING Last administered on 02/21/19at 20:14; Admin Dose 25 MG; Start 02/12/19 at 08:30 Lorazepam (Ativan) 1 mg HS PRN IV SLEEP Last administered on 02/18/19 02:11; Admin Dose 1 MG; Start 02/13/19 at 02:00 Ondansetron HCl (Zofran Inj) 4 mg Q6H PRN IV NAUSEA AND/OR VOMITING Last administered on 02/21/19 20:14; Admin Dose 4 MG; Start 02/15/19 at 23:00 Acetaminophen/ Hydrocodone Bitart ([place] (5/325)) 1 tab Q4H PRN PO MODERATE PAIN LEVEL 4-6 Last administered on 02/21/19 05:34; Admin Dose 1 TAB; Start 02/18/19 at 14:30 Docusate Sodium (Colace) 100 mg BID PO Last administered on 02/21/19at 20:14; Adm in Dose 100 MG; Start 02/18/19 at 21:00 Morphine Sulfate (morphine) 3 mg Q2H PRN IV SEVERE PAIN LEVEL 7-10 Last administered on 02/20/19 08:44; Admin Dose 3 MG; Start 02/19/19 at 14:30 Mineral Oil (Mineral Oil) 30 ml Q6 PO Last administered on 02/22/19 06:09; Admin Dose 30 ML; Start 02/20/19 at 18:00 RADHA ENRIQUEZ Feb 22, 2019 10:38
== END 2019-02-22 20:53 | disposition home or self-care (01) | DRG 376 ==
LOC: REC 06:00 → EDSTATUS 08:00 → MS1 16:08 → TEL 02-15 19:57
PROVIDERS: ADMIT Surgery; ATTEND Surgery
PROC: 0DB64ZZ Excision of Stomach, Percutaneous Endoscopic Approach (ICD-10-PCS; principal; 2019-02-11 08:00)
DX: C16.9 Malignant neoplasm of stomach, unspecified (principal); G89.18 Other acute postprocedural pain; D64.9 Anemia, unspecified; D72.829 Elevated white blood cell count, unspecified; E87.6 Hypokalemia; F41.9 Anxiety disorder, unspecified; I10 Essential (primary) hypertension; R10.13 Epigastric pain; R00.0 Tachycardia, unspecified; R11.2 Nausea with vomiting, unspecified
CPT/HCPCS: 71045; 74018; 74176; 74240; 80048; 80053; 81001; 83735; 84484; 85025; 85610; 85730; 86850; 86900; 86901; 86920; 87086; 88305; 88309; 88312; 88331; 88332; 93005; C9113; J0131; J0690; J1100; J1170; J1200; J2060; J2175; J2250; J2270; J2405; J2543; J2710; J3010; J3480; J7030; J7120; Q9967

== ENCOUNTER 2019-02-28 22:41 | Inpatient (IN) | payer OTHER ==
[~2019-02-28] VITALS: Ht 167.6 cm; Wt 50.4 kg
[2019-02-28] MEDS ORDERED: ONDANSETRON 4 MG INJ IV STA (23:14)
[2019-02-28] MEDS ORDERED: morphine 4 MG/ML VIAL IV STA (23:14)
[2019-02-28] MEDS ORDERED: SOD CHLORIDE 0.9% 500 ML IV STA (23:14)
[2019-03-01] MEDS ORDERED: ONDANSETRON 4 MG INJ IV PRN (03:00)
[2019-03-01] MEDS: ACETAMINOPHEN 325 MG TAB PO PRN ×2 (03:16→07:42)
[2019-03-01] MEDS ORDERED: HYDR-4011 PO (04:09)
--- NOTE | 2019-03-01 05:10 | ERD ---
ER Documentation Chief Complaint Chief Complaint abdominal pain x 1 day, s/p stomach tumor/ca removal 02/11/19 HPI This is a 43 female complains of abdominal pain for 1 day. States she is not having normal bowel movement the past 3 days. Denies fevers or chills. Denies any other current complaints. She is one-week status post abdominal surgery for gastric cancer debulking by Dr. Alvarado. Pain is mild to moderate intensity diffuse in location with no exacerbating alleviating factors ROS All systems reviewed and are negative except as per history of present illness. Medications Home Meds Reported Medications Hydrocodone/Acetaminophen ([place] 5-325 Tablet) 1 Each Tablet, 1 EACH PO, TAB 03/01/19 Allergies Allergies: Coded Allergies: No Known Allergy (Unverified , 03/01/19) PMhx/Soc History of Surgery: Yes (PARTIAL GASTRECTOMY NOV 2018 (RT STOMACH TUMOR)) Anesthesia Reaction: No Hx Neurological Disorder: No Hx Respiratory Disorders: No Hx Cardiac Disorders: No Hx Psychiatric Problems: No Hx Miscellaneous Medical Probl: No Hx Alcohol Use: No Hx Substance Use: No Hx Tobacco Use: No Smoking Status: Never smoker Physical Exam Vitals Vital Signs Date Temp Pulse Resp B/P (MAP) Pulse Ox O2 O2 Flow FiO2 Time Delivery Rate 03/01/19 90 18 122/81 100 Room Air 03:27 (95) 03/01/19 86 18 110/72 100 Room Air 01:13 (85) 02/28/19 85 20 121/85 100 Room Air 23:41 (97) 02/28/19 98.7 114 20 122/74 99 22:50 (90) Physical Exam Const: No acute distress Head: Atraumatic Eyes: Normal Conjunctiva ENT: Normal External Ears, Nose and Mouth. Neck: Full range of motion. No meningismus. Resp: Clear to auscultation bilaterally Cardio: Regular rate and rhythm, no murmurs Abd: Soft, non tender, non distended. Normal bowel sounds Skin: No petechiae or rashes Back: No midline or flank tenderness Ext: No cyanosis, or edema Neur: Awake and alert Psych: Normal Mood and Affect Result Diagram: 02/28/19 1880 02/28/19 7783 Results 24 hrs Laboratory Tests Test 02/28/19 23:29 White Blood Count 11.4 10^3/ul Red Blood Count 4.45 10^6/ul Hemoglobin 13.6 g/dl Hematocrit 40.0 % Mean Corpuscular Volume 89.9 fl Mean Corpuscular Hemoglobin 30.6 pg Mean Corpuscular Hemoglobin Concent 34.0 g/dl Red Cell Distribution Width 13.0 % Platelet Count 515 10^3/UL Mean Platelet Volume 9.9 fl Immature Granulocytes % 0.300 % Neutrophils % 76.5 % Lymphocytes % 16.3 % Monocytes % 6.1 % Eosinophils % 0.5 % Basophils % 0.3 % Nucleated Red Blood Cells % 0.0 /100WBC Immature Granulocytes # 0.040 10^3/ul Neutrophils # 8.7 10^3/ul Lymphocytes # 1.9 10^3/ul Monocytes # 0.7 10^3/ul Eosinophils # 0.1 10^3/ul Basophils # 0.0 10^3/ul Nucleated Red Blood Cells # 0.0 10^3/ul Urine Color YELLOW Urine Clarity SLIGHTLY CLOUDY Urine pH 7.0 Urine Specific [place] 1.018 Urine Ketones 2+ mg/dL Urine Nitrite NEGATIVE mg/dL Urine Bilirubin NEGATIVE mg/dL Urine Urobilinogen NEGATIVE mg/dL Urine Leukocyte Esterase NEGATIVE Megan/ul Urine Microscopic RBC 1 /HPF Urine Microscopic WBC 1 /HPF Urine Squamous Epithelial Cells FEW /HPF Urine Mucus FEW /HPF Urine Hemoglobin NEGATIVE mg/dL Urine Glucose NEGATIVE mg/dL Urine Total Protein NEGATIVE mg/dl Sodium Level 140 mmol/L Potassium Level 3.8 mmol/L Chloride Level 104 mmol/L Carbon Dioxide Level 24 mmol/L Anion Gap 12 Blood Urea Nitrogen 8 mg/dl Creatinine 0.62 mg/dl Est Glomerular Filtrat Rate mL/min > 60 mL/min Glucose Level 113 mg/dl Calcium Level 9.8 mg/dl Total Bilirubin 0.5 mg/dl Direct Bilirubin 0.00 mg/dl Indirect Bilirubin 0.5 mg/dl Aspartate Amino Transf (AST/SGOT) 34 IU/L Alanine Aminotransferase (ALT/SGPT) 69 IU/L Alkaline Phosphatase 96 IU/L Total Protein 7.2 g/dl Albumin 4.2 g/dl Globulin 3.00 g/dl Albumin/Globulin Ratio 1.40 Lipase 350 U/L Current Medications Medications Dose Sig/Nevaeh Start Time Status Last (Trade) Ordered Route PRN Stop Time Admin Dose Reason Admin Sodium 500 ml @ Q1H STAT 02/28/19 DC 02/28/19 Chloride 500 mls/hr IV 23:14 23:36 03/01/19 00:13 Morphine 4 mg ONCE STAT 02/28/19 DC 02/28/19 Sulfate IV 23:14 23:36 (morphine) 02/28/19 23:15 Ondansetron 4 mg ONCE STAT 02/28/19 DC 02/28/19 HCl (Zofran IV 23:14 23:36 Inj) 02/28/19 23:15 Ondansetron 4 mg BRIDGE ORDER 03/01/19 HCl (Zofran PRN IV 03:00 Inj) NAUSEA/VOMITI 03/02/19 02:59 NG 650 mg ER BRIDGE 03/01/19 03/01/19 Acetaminophen PRN PO 03:00 03:16 (Tylenol .MILD PAIN 03/02/19 02:59 Tab) 1-3 OR TEMP Procedures/MDM EKG: Rate/Rhythm: [Normal Sinus Rhythm] QRS, ST, T-waves: [No changes consistent w/ acute ischemia] Impression: [No evidence of ischemia or arrhythmia] Chest X-ray 1V Interpreted by me: Soft Tissue: No acute abnormalities Bones: No acute abnormalities Mediastinum/Cardiac Silhouette/Lungs: [No acute abnormalities] Medical decision makin female evidence of small bowel obstruction. Patient admitted to Dr. Mason who is on-call for primary. Dr. Guerin was paged but he has yet to return the page Departure Diagnosis: Primary Impression: Abdominal pain Abdominal location: unspecified location Qualified Codes: R10.9 - Unspecified abdominal pain Condition: Stable MATTIE PATHAK Mar 01, 2019 05:10
[2019-03-01 08:51] VITALS: BP 120/77; PULSE 116; RESP 20
[2019-03-01 09:22] VITALS: Ht 167.6 cm; Wt 50.4 kg
[2019-03-01] MEDS ORDERED: morphine 2 MG INJ IV PRN (10:00)
[2019-03-01] MEDS: morphine 2 MG INJ IV PRN ×3 (10:08→20:34)
[2019-03-01] MEDS: D5W-0.45 NACL + KCL 20 MEQ 1,000 ML IV SCH ×2 (10:08→20:36)
--- NOTE | 2019-03-01 10:59 | HP ---
Date/Time of Note Date/Time of Note DATE: 03/01/19 TIME: 10:52 Assessment/Plan VTE Prophylaxis Risk score (from Ns)>0 risk: 1 SCD applied (from Ns): Yes Pharmacological prophylaxis: NA/contraindicated Pharm contraindication: surgical contra Lines/Catheters IV Catheter Type (from Nrs): Saline Lock Assessment/Plan Assessment/Plan - Ileus versus partial small bowel obstruction. Keep patient n.p.o. continue IV fluids, morphine as needed for pain and Zofran as needed for nausea. Dr. Guerin is following patient in surgical consultation. - S/p laparoscopic subtotal gastrectomy by Dr. Guerin on February 11, 2019 for gastric adenocarcinoma. Further recommendations based on clinical course. Plan of care discussed with Dr. Busch. Result Diagram: 02/28/19232802/28/192328 Results 24hrs Laboratory Tests Test 02/28/19 23:29 White Blood Count 11.4 H Red Blood Count 4.45 # Hemoglobin 13.6 # Hematocrit 40.0 # Mean Corpuscular Volume 89.9 Mean Corpuscular Hemoglobin 30.6 Mean Corpuscular Hemoglobin Concent 34.0 Red Cell Distribution Width 13.0 Platelet Count 515 #H Mean Platelet Volume 9.9 Immature Granulocytes % 0.300 Neutrophils % 76.5 Lymphocytes % 16.3 Monocytes % 6.1 Eosinophils % 0.5 Basophils % 0.3 Nucleated Red Blood Cells % 0.0 Immature Granulocytes # 0.040 H Neutrophils # 8.7 H Lymphocytes # 1.9 Monocytes # 0.7 Eosinophils # 0.1 Basophils # 0.0 Nucleated Red Blood Cells # 0.0 Urine Color YELLOW Urine Clarity SLIGHTLY CLOUDY A Urine pH 7.0 Urine Specific [place] 1.018 Urine Ketones 2+ H Urine Nitrite NEGATIVE Urine Bilirubin NEGATIVE Urine Urobilinogen NEGATIVE Urine Leukocyte Esterase NEGATIVE Urine Microscopic RBC 1 Urine Microscopic WBC 1 Urine Squamous Epithelial Cells FEW Urine Mucus FEW A Urine Hemoglobin NEGATIVE Urine Glucose NEGATIVE Urine Total Protein NEGATIVE Sodium Level 140 Potassium Level 3.8 Chloride Level 104 Carbon Dioxide Level 24 Anion Gap 12 Blood Urea Nitrogen 8 Creatinine 0.62 Est Glomerular Filtrat Rate mL/min > 60 Glucose Level 113 Calcium Level 9.8 Total Bilirubin 0.5 Direct Bilirubin 0.00 Indirect Bilirubin 0.5 Aspartate Amino Transf (AST/SGOT) 34 Alanine Aminotransferase (ALT/SGPT) 69 Alkaline Phosphatase 96 Total Protein 7.2 Albumin 4.2 Globulin 3.00 Albumin/Globulin Ratio 1.40 Lipase 350 H HPI/ROS Admit Date/Time Admit Date/Time Mar 01, 2019 at 02:38 Hx of Present Illness The patient is a 43-year-old female who underwent laparoscopic subtotal gastrectomy by Dr. Guerin on February 11, 2019 for intramucosal moderately differentiated adenocarcinoma that was diagnosed on EGD done in July 2018. Patient presented to the emergency room with complaints of abdominal pain for 1 day and not being able to have a bowel movement for couple of days. She stated she is been on liquid and pured diet at home. Patient denies any fever chills denies any chest pain denies any shortness of breath. Patient underwent CT of the abdomen and pelvis which revealed ileus versus partial small bowel obstruction. Patient is given morphine for pain and Zofran as needed for nausea started on IV fluids. Patient will be admitted for further evaluation and management. ROS 12 point review of system is negative except for what mentioned in HPI PMH/Family/Social Past Medical History per HPI Medications Current Medications Ondansetron HCl (Zofran Inj) 4 mg BRIDGE ORDER PRN IV NAUSEA/VOMITING Last administered on 03/01/19at 07:48; Admin Dose 4 MG; Start 03/01/19 at 03:00; Stop 03/02/19 at 02:59 Acetaminophen (Tylenol Tab) 650 mg ER BRIDGE PRN PO .MILD PAIN 1-3 OR TEMP Last administered on 03/01/19at 07:42; Admin Dose 650 MG; Start 03/01/19 at 03:00; Stop 03/02/19 at 02:59 Potassium Chloride/Dextrose/ Sod Cl 1,000 ml @ 100 mls/hr Q10H IV Last administered on 03/01/19at 10:08; Admin Dose 100 MLS/HR; Start 03/01/19 at 10:00 Morphine Sulfate (morphine) 2 mg Q3H PRN IV SEVERE PAIN LEVEL 7-10 Last administered on 03/01/19at 10:08; Admin Dose 2 MG; Start 03/01/19 at 10:00 Coded Allergies: No Known Allergy (Unverified , 03/01/19) Past Surgical History Past Surgical Hx: other (laparoscopic subtotal gastrectomy by Dr. Guerin on February 11, 2019) Family History Significant Family History: no pertinent family hx Social History Alcohol Use: none Smoking Status: Unknown if ever smoked Drug Use: none Exam/Review of Systems Vital Signs Vitals Vital Signs Date Temp Pulse Resp B/P (MAP) Pulse Ox O2 O2 Flow FiO2 Time Delivery Rate 03/01/19 98.2 116 20 120/77 99 Room Air 08:51 (91) Intake and Output 02/28/19 02/28/19 03/01/19 1515:00 23:00 07:00 IntakeIntake Total 500 ml BalanceBalance 500 ml Exam Constitutional: alert, oriented Head: normocephalic Neck: supple Respiratory: clear to auscultation Cardiovascular: nl pulses Gastrointestinal: soft, tender (Left lower quadrant, intact surgical incisions with amarilis) Musculoskeletal: nl extremities to inspection Extremities: normal pulses Skin: nl jesus albertogor RADHA ENRIQUEZ Mar 01, 2019 10:58
[2019-03-01 11:09] VITALS: PULSE 90
[2019-03-01] MEDS ORDERED: BISACODYL (EC) 5 MG TAB PO PRN (14:30)
--- NOTE | 2019-03-01 16:09 | CONS ---
DATE OF ADMISSION: 03/01/2019 DATE OF CONSULTATION: 03/01/2019 TYPE OF CONSULTATION: General surgery. INDICATION: This is a 43-year-old female well known to me. She recently underwent a laparoscopic woodard btotal gastrectomy for gastric cancer. Postoperatively, she did well with slightly delayed recovery. She presents here with a 3-day history of constipation. She underwent CT scan showing severe const ipation with stool back getting up all the way to the right side of the colon. She did not have any nausea or vomiting. At the hospital however, she had some nausea at home. PAST MEDICAL HISTORY: As above. PAST SURGICAL HISTORY: Laparoscopic total gastrectomy. PHYSICAL EXAMINATION: VITAL SIGNS: Temperature is 98.2, pulse is 116, respiratory rate is 20, blood pressure is 120/77. ABDOMEN: Soft. Mild to moderate tenderness. No peritoneal signs. No rebound tenderness. Her stap les were removed on exam. LABORATORY DATA: White blood cell count is 11.4. Lipase is 350. ASSESSMENT AND PLAN: This is a 43-year-old female with what appears to be constipation secondarily h er lipase is elevated and this could be mild pancreatitis. CT scan showed that the pancreas appeared normal; however, her lipase is elevated. Gallbladder does also show probable sludge. We will alejandra nue to watch patient conservatively, keep her n.p.o. and we will give laxatives and enema to clean up the colon. We will continue to monitor to see if this is in fact pancreatitis versus constipation. Dictated By: CLAUDE HERNANDEZ MD SB/BEULAH Conf#: [id number] DID#: [id number] CC: KIRAN CARMEN MD;*EndCC*
[2019-03-01] MEDS: BISACODYL (EC) 5 MG TAB PO SCH (16:25)
[2019-03-01 19:49] VITALS: BP 122/81; PULSE 87; RESP 16
[2019-03-02] MEDS: ONDANSETRON 4 MG INJ IV PRN ×4 (00:01→19:48)
[2019-03-02] MEDS: morphine 2 MG INJ IV PRN ×6 (00:59→22:49)
[2019-03-02 01:20] VITALS: BP 124/80; PULSE 82; RESP 16
[2019-03-02] MEDS: D5W-0.45 NACL + KCL 20 MEQ 1,000 ML IV SCH ×2 (05:57→15:49)
[2019-03-02 08:13] VITALS: BP 117/81; PULSE 90; RESP 18
[2019-03-02] MEDS: BISACODYL (EC) 5 MG TAB PO SCH (08:57)
[2019-03-02] MEDS ORDERED: BISACODYL (EC) 5 MG TAB PO SCH (09:00)
[2019-03-02] MEDS ORDERED: MINERAL OIL 133 ML ENEMA PR ONE (15:20)
--- NOTE | 2019-03-02 16:42 | PN ---
Date/Time of Note Date/Time of Note DATE: 03/02/19 TIME: 16:40 Assessment/Plan VTE Prophylaxis Risk score (from Ns)>0 risk: 4 SCD applied (from Nsg): Yes Pharmacological prophylaxis: LMWH Lines/Catheters IV Catheter Type (from Nrsg): Peripheral IV Urinary Cath still in place: No Assessment/Plan Hospital Course Patient undergoing treatment for constipation, encourage ambulation, started on clear liquid diet. Assessment/Plan - Ileus versus partial small bowel obstruction. Keep patient n.p.o. continue IV fluids, morphine as needed for pain and Zofran as needed for nausea. Dr. Guerin is following patient in surgical consultation. - S/p laparoscopic subtotal gastrectomy by Dr. Guerin on February 11, 2019 for gastric adenocarcinoma. Further recommendations based on clinical course. Plan of care discussed with Dr. Busch. Result Diagram: 03/02/19 0446 03/02/19 0446 Results 24hrs Laboratory Tests Test 03/02/19 04:46 White Blood Count 11.4 H Red Blood Count 4.18 L Hemoglobin 12.6 Hematocrit 37.5 Mean Corpuscular Volume 89.7 Mean Corpuscular Hemoglobin 30.1 Mean Corpuscular Hemoglobin Concent 33.6 Red Cell Distribution Width 13.2 Platelet Count 471 H Mean Platelet Volume 10.9 H Immature Granulocytes % 0.600 H Neutrophils % 77.0 Lymphocytes % 16.1 Monocytes % 5.6 Eosinophils % 0.3 Basophils % 0.4 Nucleated Red Blood Cells % 0.0 Immature Granulocytes # 0.070 H Neutrophils # 8.8 H Lymphocytes # 1.8 Monocytes # 0.6 Eosinophils # 0.0 Basophils # 0.0 Nucleated Red Blood Cells # 0.0 Sodium Level 142 Potassium Level 4.1 Chloride Level 107 Carbon Dioxide Level 24 Anion Gap 11 Blood Urea Nitrogen < 2 L Creatinine 0.50 Est Glomerular Filtrat Rate mL/min > 60 Glucose Level 128 Calcium Level 9.3 Total Bilirubin 0.4 Direct Bilirubin 0.00 Indirect Bilirubin 0.4 Aspartate Amino Transf (AST/SGOT) 24 Alanine Aminotransferase (ALT/SGPT) 43 Alkaline Phosphatase 73 Total Protein 6.7 Albumin 3.6 Globulin 3.10 Albumin/Globulin Ratio 1.16 Exam/Review of Systems Exam Vitals Vital Signs Date Temp Pulse Resp B/P (MAP) Pulse Ox O2 O2 Flow FiO2 Time Delivery Rate 03/02/19 98.9 90 18 117/81 98 08:13 (93) 03/01/19 Room Air 08:51 Intake and Output 03/01/19 03/01/19 03/02/19 1515:00 23:00 07:00 IntakeIntake Total 1000 ml 1360 ml BalanceBalance 1000 ml 1360 ml Exam Constitutional: alert, oriented Respiratory: clear to auscultation Cardiovascular: nl pulses Gastrointestinal: soft, tender (Left lower quadrant, intact surgical incisions with amarilis) Musculoskeletal: nl extremities to inspection Extremities: normal pulses Skin: nl turgor Results Results 24hrs Laboratory Tests Test 03/02/19 04:46 White Blood Count 11.4 H Red Blood Count 4.18 L Hemoglobin 12.6 Hematocrit 37.5 Mean Corpuscular Volume 89.7 Mean Corpuscular Hemoglobin 30.1 Mean Corpuscular Hemoglobin Concent 33.6 Red Cell Distribution Width 13.2 Platelet Count 471 H Mean Platelet Volume 10.9 H Immature Granulocytes % 0.600 H Neutrophils % 77.0 Lymphocytes % 16.1 Monocytes % 5.6 Eosinophils % 0.3 Basophils % 0.4 Nucleated Red Blood Cells % 0.0 Immature Granulocytes # 0.070 H Neutrophils # 8.8 H Lymphocytes # 1.8 Monocytes # 0.6 Eosinophils # 0.0 Basophils # 0.0 Nucleated Red Blood Cells # 0.0 Sodium Level 142 Potassium Level 4.1 Chloride Level 107 Carbon Dioxide Level 24 Anion Gap 11 Blood Urea Nitrogen < 2 L Creatinine 0.50 Est Glomerular Filtrat Rate mL/min > 60 Glucose Level 128 Calcium Level 9.3 Total Bilirubin 0.4 Direct Bilirubin 0.00 Indirect Bilirubin 0.4 Aspartate Amino Transf (AST/SGOT) 24 Alanine Aminotransferase (ALT/SGPT) 43 Alkaline Phosphatase 73 Total Protein 6.7 Albumin 3.6 Globulin 3.10 Albumin/Globulin Ratio 1.16 Medications Medication Current Medications Potassium Chloride/Dextrose/ Sod Cl 1,000 ml @ 100 mls/hr Q10H IV Last administered on 03/02/19at 15:49; Admin Dose 100 MLS/HR; Start 03/01/19 at 10:00 Morphine Sulfate (morphine) 2 mg Q3H PRN IV SEVERE PAIN LEVEL 7-10 Last administered on 03/02/19at 15:49; Admin Dose 2 MG; Start 03/01/19 at 10:00 Bisacodyl (Dulcolax) 10 mg DAILY PO Last administered on 03/02/19at 08:57; Admin Dose 10 MG; Start 03/01/19 at 17:00 Ondansetron HCl (Zofran Inj) 4 mg Q6H PRN IV NAUSEA AND/OR VOMITING Last administered on 03/02/19at 12:35; Admin Dose 4 MG; Start 03/02/19 at 00:00 RADHA ENRIQUEZ Mar 02, 2019 16:42
[2019-03-02 19:45] VITALS: BP 120/83; PULSE 98; RESP 20
[2019-03-03] MEDS: D5W-0.45 NACL + KCL 20 MEQ 1,000 ML IV SCH ×3 (01:51→21:29)
[2019-03-03] MEDS: morphine 2 MG INJ IV PRN ×7 (01:51→22:31)
[2019-03-03 02:05] VITALS: BP 135/92; PULSE 97; RESP 20
[2019-03-03] MEDS: ONDANSETRON 4 MG INJ IV PRN ×3 (05:46→18:06)
[2019-03-03 07:42] VITALS: BP 124/84; PULSE 90; RESP 18
[2019-03-03] MEDS: BISACODYL (EC) 5 MG TAB PO SCH (08:25)
--- NOTE | 2019-03-03 10:05 | PN ---
Date/Time of Note Date/Time of Note DATE: 03/03/19 TIME: 10:04 Assessment/Plan VTE Prophylaxis Risk score (from Ns)>0 risk: 4 SCD applied (from Ns): Yes Pharmacological prophylaxis: other Lines/Catheters IV Catheter Type (from Nrs): Peripheral IV Urinary Cath still in place: No Assessment/Plan Assessment/Plan psbo vs pancreatitis will add miralax and check lipase levels Result Diagram: 03/03/19 0453 03/03/19 0453 Results 24hrs Laboratory Tests Test 03/03/19 04:53 White Blood Count 10.7 Red Blood Count 4.48 Hemoglobin 13.1 Hematocrit 40.2 Mean Corpuscular Volume 89.7 Mean Corpuscular Hemoglobin 29.2 Mean Corpuscular Hemoglobin Concent 32.6 Red Cell Distribution Width 13.2 Platelet Count 450 H Mean Platelet Volume 10.9 H Immature Granulocytes % 0.500 H Neutrophils % 66.1 Lymphocytes % 23.2 Monocytes % 9.2 Eosinophils % 0.6 Basophils % 0.4 Nucleated Red Blood Cells % 0.0 Immature Granulocytes # 0.050 H Neutrophils # 7.1 Lymphocytes # 2.5 Monocytes # 1.0 H Eosinophils # 0.1 Basophils # 0.0 Nucleated Red Blood Cells # 0.0 Sodium Level 140 Potassium Level 3.7 Chloride Level 104 Carbon Dioxide Level 27 Anion Gap 9 Blood Urea Nitrogen < 2 L Creatinine 0.61 Est Glomerular Filtrat Rate mL/min > 60 Glucose Level 122 Calcium Level 10.0 Subjective 24 Hr Interval Summary Free Text/Dictation patient passing gas but no bm, also patient isn't hungry, no nausea or vomiting Exam/Review of Systems Exam Vitals Vital Signs Date Temp Pulse Resp B/P (MAP) Pulse Ox O2 O2 Flow FiO2 Time Delivery Rate 03/03/19 98.2 90 18 124/84 99 Room Air 07:42 (97) Intake and Output 03/02/19 03/02/19 03/03/19 1515:00 23:00 07:00 IntakeIntake Total 120 ml 1720 ml 1400 ml BalanceBalance 120 ml 1720 ml 1400 ml Exam soft nondistended some mild tenderness Results Results 24hrs Laboratory Tests Test 03/03/19 04:53 White Blood Count 10.7 Red Blood Count 4.48 Hemoglobin 13.1 Hematocrit 40.2 Mean Corpuscular Volume 89.7 Mean Corpuscular Hemoglobin 29.2 Mean Corpuscular Hemoglobin Concent 32.6 Red Cell Distribution Width 13.2 Platelet Count 450 H Mean Platelet Volume 10.9 H Immature Granulocytes % 0.500 H Neutrophils % 66.1 Lymphocytes % 23.2 Monocytes % 9.2 Eosinophils % 0.6 Basophils % 0.4 Nucleated Red Blood Cells % 0.0 Immature Granulocytes # 0.050 H Neutrophils # 7.1 Lymphocytes # 2.5 Monocytes # 1.0 H Eosinophils # 0.1 Basophils # 0.0 Nucleated Red Blood Cells # 0.0 Sodium Level 140 Potassium Level 3.7 Chloride Level 104 Carbon Dioxide Level 27 Anion Gap 9 Blood Urea Nitrogen < 2 L Creatinine 0.61 Est Glomerular Filtrat Rate mL/min > 60 Glucose Level 122 Calcium Level 10.0 Medications Medication Current Medications Potassium Chloride/Dextrose/ Sod Cl 1,000 ml @ 100 mls/hr Q10H IV Last administered on 03/03/19 01:51; Admin Dose 100 MLS/HR; Start 03/01/19 at 10:00 Morphine Sulfate (morphine) 2 mg Q3H PRN IV SEVERE PAIN LEVEL 7-10 Last administered on 03/03/19 08:24; Admin Dose 2 MG; Start 03/01/19 at 10:00 Bisacodyl (Dulcolax) 10 mg DAILY PO Last administered on 03/03/19 08:25; Admin Dose 10 MG; Start 03/01/19 at 17:00 Ondansetron HCl (Zofran Inj) 4 mg Q6H PRN IV NAUSEA AND/OR VOMITING Last administered on 03/03/19 05:46; Admin Dose 4 MG; Start 03/02/19 at 00:00 Radha HERNANDEZ Mar 03, 2019 10:05
[2019-03-03] MEDS: POLYETHYLENE GLYCOL 17 GM PACKET PO SCH (10:55)
--- NOTE | 2019-03-03 14:20 | PN ---
Date/Time of Note Date/Time of Note DATE: 03/03/19 TIME: 14:17 Assessment/Plan VTE Prophylaxis Risk score (from Ns)>0 risk: 4 SCD applied (from Nsg): Yes Pharmacological prophylaxis: LMWH Lines/Catheters IV Catheter Type (from Nrsg): Peripheral IV Urinary Cath still in place: No Assessment/Plan Hospital Course Patient complains of nausea, constipation and abdominal pain. Encourage ambulation, add Amitiza to current regiment. Continue IV fluids and antiemetics, surgery recommendation. Assessment/Plan - Ileus versus partial small bowel obstruction. Keep patient n.p.o. continue IV fluids, morphine as needed for pain and Zofran as needed for nausea. Dr. Guerin is following patient in surgical consultation. - S/p laparoscopic subtotal gastrectomy by Dr. Guerin on February 11, 2019 for gastric adenocarcinoma. Further recommendations based on clinical course. Plan of care discussed with Dr. Busch. Result Diagram: 03/03/19 0453 03/03/19 0453 Results 24hrs Laboratory Tests Test 03/03/19 04:53 03/03/19 09:12 White Blood Count 10.7 Red Blood Count 4.48 Hemoglobin 13.1 Hematocrit 40.2 Mean Corpuscular Volume 89.7 Mean Corpuscular Hemoglobin 29.2 Mean Corpuscular Hemoglobin Concent 32.6 Red Cell Distribution Width 13.2 Platelet Count 450 H Mean Platelet Volume 10.9 H Immature Granulocytes % 0.500 H Neutrophils % 66.1 Lymphocytes % 23.2 Monocytes % 9.2 Eosinophils % 0.6 Basophils % 0.4 Nucleated Red Blood Cells % 0.0 Immature Granulocytes # 0.050 H Neutrophils # 7.1 Lymphocytes # 2.5 Monocytes # 1.0 H Eosinophils # 0.1 Basophils # 0.0 Nucleated Red Blood Cells # 0.0 Sodium Level 140 Potassium Level 3.7 Chloride Level 104 Carbon Dioxide Level 27 Anion Gap 9 Blood Urea Nitrogen < 2 L Creatinine 0.61 Est Glomerular Filtrat Rate mL/min > 60 Glucose Level 122 Calcium Level 10.0 Lipase 178 Exam/Review of Systems Exam Vitals Vital Signs Date Temp Pulse Resp B/P (MAP) Pulse Ox O2 O2 Flow FiO2 Time Delivery Rate 03/03/19 98.2 90 18 124/84 99 Room Air 07:42 (97) Intake and Output 03/02/19 03/02/19 03/03/19 1515:00 23:00 07:00 IntakeIntake Total 120 ml 1720 ml 1400 ml BalanceBalance 120 ml 1720 ml 1400 ml Exam Constitutional: alert, oriented Respiratory: clear to auscultation Cardiovascular: nl pulses Gastrointestinal: soft, tender (Left lower quadrant) Musculoskeletal: nl extremities to inspection Extremities: normal pulses Skin: nl turgor Results Results 24hrs Laboratory Tests Test 03/03/19 04:53 03/03/19 09:12 White Blood Count 10.7 Red Blood Count 4.48 Hemoglobin 13.1 Hematocrit 40.2 Mean Corpuscular Volume 89.7 Mean Corpuscular Hemoglobin 29.2 Mean Corpuscular Hemoglobin Concent 32.6 Red Cell Distribution Width 13.2 Platelet Count 450 H Mean Platelet Volume 10.9 H Immature Granulocytes % 0.500 H Neutrophils % 66.1 Lymphocytes % 23.2 Monocytes % 9.2 Eosinophils % 0.6 Basophils % 0.4 Nucleated Red Blood Cells % 0.0 Immature Granulocytes # 0.050 H Neutrophils # 7.1 Lymphocytes # 2.5 Monocytes # 1.0 H Eosinophils # 0.1 Basophils # 0.0 Nucleated Red Blood Cells # 0.0 Sodium Level 140 Potassium Level 3.7 Chloride Level 104 Carbon Dioxide Level 27 Anion Gap 9 Blood Urea Nitrogen < 2 L Creatinine 0.61 Est Glomerular Filtrat Rate mL/min > 60 Glucose Level 122 Calcium Level 10.0 Lipase 178 Medications Medication Current Medications Potassium Chloride/Dextrose/ Sod Cl 1,000 ml @ 100 mls/hr Q10H IV Last administered on 03/03/19at 11:51; Admin Dose 100 MLS/HR; Start 03/01/19 at 10:00 Morphine Sulfate (morphine) 2 mg Q3H PRN IV SEVERE PAIN LEVEL 7-10 Last administered on 03/03/19at 12:25; Admin Dose 2 MG; Start 03/01/19 at 10:00 Bisacodyl (Dulcolax) 10 mg DAILY PO Last administered on 03/03/19at 08:25; Admin Dose 10 MG; Start 03/01/19 at 17:00 Ondansetron HCl (Zofran Inj) 4 mg Q6H PRN IV NAUSEA AND/OR VOMITING Last administered on 03/03/19at 11:50; Admin Dose 4 MG; Start 03/02/19 at 00:00 Polyethylene Glycol (Miralax) 17 gm DAILY PO Last administered on 03/03/19at 10:55; Admin Dose 17 GM; Start 03/03/19 at 10:30 RADHA ENRIQUEZ Mar 03, 2019 14:20
[2019-03-03 14:47] VITALS: BP 128/80; PULSE 90; RESP 18
[2019-03-03] MEDS: LUBIPROSTONE 24 MCG CAP PO SCH ×2 (16:01→20:42)
[2019-03-03 20:27] VITALS: BP 126/60; PULSE 102; RESP 20
[2019-03-04] MEDS: ONDANSETRON 4 MG INJ IV PRN ×2 (01:32→11:42)
[2019-03-04] MEDS: morphine 2 MG INJ IV PRN ×4 (01:33→11:37)
[2019-03-04 02:02] VITALS: BP 128/68; PULSE 100; RESP 17
--- NOTE | 2019-03-04 03:02 | PN ---
Date/Time of Note Date/Time of Note DATE: 03/04/19 TIME: 03:01 Assessment/Plan VTE Prophylaxis Risk score (from Nsg)>0 risk: 8 SCD applied (from Nsg): Yes Lines/Catheters IV Catheter Type (from Nrsg): Peripheral IV Urinary Cath still in place: No Assessment/Plan Assessment/Plan - Ileus versus partial small bowel obstruction. Keep patient n.p.o. continue IV fluids, morphine as needed for pain and Zofran as needed for nausea. Dr. Guerin is following patient in surgical consultation. - S/p laparoscopic subtotal gastrectomy by Dr. Guerin on February 11, 2019 for gastric adenocarcinoma. Further recommendations based on clinical course. Plan of care discussed with Dr. Busch. Result Diagram: 03/03/19 0453 03/03/19 0453 Results 24hrs Laboratory Tests Test 03/03/19 04:53 03/03/19 09:12 White Blood Count 10.7 Red Blood Count 4.48 Hemoglobin 13.1 Hematocrit 40.2 Mean Corpuscular Volume 89.7 Mean Corpuscular Hemoglobin 29.2 Mean Corpuscular Hemoglobin Concent 32.6 Red Cell Distribution Width 13.2 Platelet Count 450 H Mean Platelet Volume 10.9 H Immature Granulocytes % 0.500 H Neutrophils % 66.1 Lymphocytes % 23.2 Monocytes % 9.2 Eosinophils % 0.6 Basophils % 0.4 Nucleated Red Blood Cells % 0.0 Immature Granulocytes # 0.050 H Neutrophils # 7.1 Lymphocytes # 2.5 Monocytes # 1.0 H Eosinophils # 0.1 Basophils # 0.0 Nucleated Red Blood Cells # 0.0 Sodium Level 140 Potassium Level 3.7 Chloride Level 104 Carbon Dioxide Level 27 Anion Gap 9 Blood Urea Nitrogen < 2 L Creatinine 0.61 Est Glomerular Filtrat Rate mL/min > 60 Glucose Level 122 Calcium Level 10.0 Lipase 178 Subjective 24 Hr Interval Summary Free Text/Dictation C/O abdominal pain Exam/Review of Systems Exam Vitals Vital Signs Date Temp Pulse Resp B/P (MAP) Pulse Ox O2 O2 Flow FiO2 Time Delivery Rate 03/04/19 98.2 100 17 128/68 98 Room Air 02:02 (88) Intake and Output 03/03/19 03/03/19 03/04/19 1515:00 23:00 07:00 IntakeIntake Total 450 ml 500 ml OutputOutput Total 100 ml BalanceBalance 350 ml 500 ml Results Results 24hrs Laboratory Tests Test 03/03/19 04:53 03/03/19 09:12 White Blood Count 10.7 Red Blood Count 4.48 Hemoglobin 13.1 Hematocrit 40.2 Mean Corpuscular Volume 89.7 Mean Corpuscular Hemoglobin 29.2 Mean Corpuscular Hemoglobin Concent 32.6 Red Cell Distribution Width 13.2 Platelet Count 450 H Mean Platelet Volume 10.9 H Immature Granulocytes % 0.500 H Neutrophils % 66.1 Lymphocytes % 23.2 Monocytes % 9.2 Eosinophils % 0.6 Basophils % 0.4 Nucleated Red Blood Cells % 0.0 Immature Granulocytes # 0.050 H Neutrophils # 7.1 Lymphocytes # 2.5 Monocytes # 1.0 H Eosinophils # 0.1 Basophils # 0.0 Nucleated Red Blood Cells # 0.0 Sodium Level 140 Potassium Level 3.7 Chloride Level 104 Carbon Dioxide Level 27 Anion Gap 9 Blood Urea Nitrogen < 2 L Creatinine 0.61 Est Glomerular Filtrat Rate mL/min > 60 Glucose Level 122 Calcium Level 10.0 Lipase 178 Medications Medication Current Medications Potassium Chloride/Dextrose/ Sod Cl 1,000 ml @ 100 mls/hr Q10H IV Last adminis tered on 03/03/19 21:29; Admin Dose 100 MLS/HR; Start 03/01/19 at 10:00 Morphine Sulfate (morphine) 2 mg Q3H PRN IV SEVERE PAIN LEVEL 7-10 Last administered on 03/04/19 01:33; Admin Dose 2 MG; Start 03/01/19 at 10:00 Bisacodyl (Dulcolax) 10 mg DAILY PO Last administered on 03/03/19 08:25; Admin Dose 10 MG; Start 03/01/19 at 17:00 Ondansetron HCl (Zofran Inj) 4 mg Q6H PRN IV NAUSEA AND/OR VOMITING Last administered on 03/04/19 01:32; Admin Dose 4 MG; Start 03/02/19 at 00:00 Polyethylene Glycol (Miralax) 17 gm DAILY PO Last administered on 03/03/19 10:55; Admin Dose 17 GM; Start 03/03/19 at 10:30 Lubiprostone (Amitiza) 24 mcg BID PO Last administered on 03/03/19 20:42; Admin Dose 24 MCG; Start 03/03/19 at 14:30 Enoxaparin Sodium (Lovenox) 30 mg DAILY SC ; Start 03/04/19 at 09:00 JEFFERSON ABRAHAM Mar 04, 2019 03:02
[2019-03-04 07:50] VITALS: BP_SYST 12; BP_SYST 121; BP_DIAS 87; PULSE 79; RESP 18
[2019-03-04] MEDS: D5W-0.45 NACL + KCL 20 MEQ 1,000 ML IV SCH ×3 (08:28→17:50)
[2019-03-04] MEDS ORDERED: LACTULOSE 30ML CUP PO PRN (09:00)
--- NOTE | 2019-03-04 09:02 | PN ---
Date/Time of Note Date/Time of Note DATE: 03/04/19 TIME: 09:01 Assessment/Plan VTE Prophylaxis Risk score (from Ns)>0 risk: 8 SCD applied (from Ns): Yes Pharmacological prophylaxis: other Lines/Catheters IV Catheter Type (from [facility]): Peripheral IV Urinary Cath still in place: No Assessment/Plan Assessment/Plan s/p lap subtotal gastrectomy with constipation will add additional laxatives Result Diagram: 03/04/19 0428 03/04/19 0428 Results 24hrs Laboratory Tests Test 03/03/19 09:12 03/04/19 04:28 Lipase 178 White Blood Count 10.1 Red Blood Count 4.28 Hemoglobin 13.0 Hematocrit 38.8 Mean Corpuscular Volume 90.7 Mean Corpuscular Hemoglobin 30.4 Mean Corpuscular Hemoglobin Concent 33.5 Red Cell Distribution Width 13.2 Platelet Count 354 # Mean Platelet Volume 10.9 H Immature Granulocytes % 0.400 Neutrophils % 59.3 Lymphocytes % 30.4 Monocytes % 8.7 Eosinophils % 0.8 Basophils % 0.4 Nucleated Red Blood Cells % 0.0 Immature Granulocytes # 0.040 H Neutrophils # 6.0 Lymphocytes # 3.1 H Monocytes # 0.9 Eosinophils # 0.1 Basophils # 0.0 Nucleated Red Blood Cells # 0.0 Sodium Level 139 Potassium Level 4.8 Chloride Level 103 Carbon Dioxide Level 28 Anion Gap 8 Blood Urea Nitrogen < 2 L Creatinine 0.52 Est Glomerular Filtrat Rate mL/min > 60 Glucose Level 111 Calcium Level 9.6 Subjective 24 Hr Interval Summary Free Text/Dictation patient still no having bowel movements but passing gas pancreatitis is resolving with downtrending lipase Exam/Review of Systems Exam Vitals Vital Signs Date Temp Pulse Resp B/P (MAP) Pulse Ox O2 O2 Flow FiO2 Time Delivery Rate 03/04/19 97.8 79 18 12/87 (62) 95 Room Air 07:50 Intake and Output 03/03/19 03/03/19 03/04/19 1515:00 23:00 07:00 IntakeIntake Total 450 ml 900 ml 1065 ml OutputOutput Total 100 ml 600 ml BalanceBalance 350 ml 900 ml 465 ml Exam soft Results Results 24hrs Laboratory Tests Test 03/03/19 09:12 03/04/19 04:28 Lipase 178 White Blood Count 10.1 Red Blood Count 4.28 Hemoglobin 13.0 Hematocrit 38.8 Mean Corpuscular Volume 90.7 Mean Corpuscular Hemoglobin 30.4 Mean Corpuscular Hemoglobin Concent 33.5 Red Cell Distribution Width 13.2 Platelet Count 354 # Mean Platelet Volume 10.9 H Immature Granulocytes % 0.400 Neutrophils % 59.3 Lymphocytes % 30.4 Monocytes % 8.7 Eosinophils % 0.8 Basophils % 0.4 Nucleated Red Blood Cells % 0.0 Immature Granulocytes # 0.040 H Neutrophils # 6.0 Lymphocytes # 3.1 H Monocytes # 0.9 Eosinophils # 0.1 Basophils # 0.0 Nucleated Red Blood Cells # 0.0 Sodium Level 139 Potassium Level 4.8 Chloride Level 103 Carbon Dioxide Level 28 Anion Gap 8 Blood Urea Nitrogen < 2 L Creatinine 0.52 Est Glomerular Filtrat Rate mL/min > 60 Glucose Level 111 Calcium Level 9.6 Medications Medication Current Medications Potassium Chloride/Dextrose/ Sod Cl 1,000 ml @ 100 mls/hr Q10H IV Last administered on 03/04/19 08:28; Admin Dose 100 MLS/HR; Start 03/01/19 at 10:00 Morphine Sulfate (morphine) 2 mg Q3H PRN IV SEVERE PAIN LEVEL 7-10 Last administered on 03/04/19 07:27; Admin Dose 2 MG; Start 03/01/19 at 10:00 Bisacodyl (Dulcolax) 10 mg DAILY PO Last administered on 03/03/19 08:25; Admin Dose 10 MG; Start 03/01/19 at 17:00 Ondansetron HCl (Zofran Inj) 4 mg Q6H PRN IV NAUSEA AND/OR VOMITING Last administered on 03/04/19 01:32; Admin Dose 4 MG; Start 03/02/19 at 00:00 Polyethylene Glycol (Miralax) 17 gm DAILY PO Last administered on 03/03/19 10:55; Admin Dose 17 GM; Start 03/03/19 at 10:30 Lubiprostone (Amitiza) 24 mcg BID PO Last administered on 03/03/19 20:42; Admin Dose 24 MCG; Start 03/03/19 at 14:30 Enoxaparin Sodium (Lovenox) 30 mg DAILY SC ; Start 03/04/19 at 09:00 Radha HERNANDEZ Mar 04, 2019 09:02
[2019-03-04] MEDS: BISACODYL (EC) 5 MG TAB PO SCH (09:21)
[2019-03-04] MEDS: POLYETHYLENE GLYCOL 17 GM PACKET PO SCH (09:22)
[2019-03-04] MEDS: ENOXAPARIN 30 MG/0.3 ML SYG SC SCH (09:26)
[2019-03-04] MEDS: LUBIPROSTONE 24 MCG CAP PO SCH ×2 (09:27→20:56)
[2019-03-04 14:43] VITALS: BP 118/76; PULSE 93; RESP 18
[2019-03-04 19:50] VITALS: BP 115/66; PULSE 79; RESP 20
[2019-03-05] MEDS ORDERED: ACETAMINOPHEN 325 MG TAB PO PRN (02:00)
[2019-03-05 02:05] VITALS: BP 107/72; PULSE 87; RESP 20
[2019-03-05] MEDS: D5W-0.45 NACL + KCL 20 MEQ 1,000 ML IV SCH ×2 (03:19→15:52)
[2019-03-05 07:22] VITALS: BP 98/63; PULSE 71; RESP 14
[2019-03-05] MEDS: BISACODYL (EC) 5 MG TAB PO SCH (08:35)
[2019-03-05] MEDS: LUBIPROSTONE 24 MCG CAP PO SCH ×2 (08:35→20:10)
[2019-03-05] MEDS: POLYETHYLENE GLYCOL 17 GM PACKET PO SCH (08:35)
[2019-03-05] MEDS: ENOXAPARIN 30 MG/0.3 ML SYG SC SCH (08:37)
[2019-03-05] MEDS: morphine 2 MG INJ IV PRN (10:54)
--- NOTE | 2019-03-05 11:14 | PN ---
Date/Time of Note Date/Time of Note DATE: 03/05/19 TIME: 11:13 Assessment/Plan VTE Prophylaxis Risk score (from Ns)>0 risk: 1 SCD applied (from Nsg): Yes Pharmacological prophylaxis: LMWH Lines/Catheters IV Catheter Type (from Nrsg): Saline Lock Urinary Cath still in place: No Assessment/Plan Hospital Course - Ileus versus partial small bowel obstruction. Keep patient n.p.o. continue IV fluids, morphine as needed for pain and Zofran as needed for nausea. Dr. Guerin is following patient in surgical consultation. - S/p laparoscopic subtotal gastrectomy by Dr. Guerin on February 11, 2019 for gastric adenocarcinoma. Result Diagram: 03/05/199 03/05/199 Results 24hrs Laboratory Tests Test 03/05/19 04:49 White Blood Count 8.9 Red Blood Count 3.85 L Hemoglobin 11.7 L Hematocrit 34.6 L Mean Corpuscular Volume 89.9 Mean Corpuscular Hemoglobin 30.4 Mean Corpuscular Hemoglobin Concent 33.8 Red Cell Distribution Width 12.9 Platelet Count 298 Mean Platelet Volume 11.5 H Immature Granulocytes % 0.300 Neutrophils % 51.1 Lymphocytes % 36.6 Monocytes % 10.0 Eosinophils % 1.4 Basophils % 0.6 Nucleated Red Blood Cells % 0.0 Immature Granulocytes # 0.030 Neutrophils # 4.5 Lymphocytes # 3.3 H Monocytes # 0.9 Eosinophils # 0.1 Basophils # 0.1 Nucleated Red Blood Cells # 0.0 Sodium Level 139 Potassium Level 4.0 Chloride Level 106 Carbon Dioxide Level 25 Anion Gap 8 Blood Urea Nitrogen < 2 L Creatinine 0.54 Est Glomerular Filtrat Rate mL/min > 60 Glucose Level 105 Calcium Level 9.5 Subjective 24 Hr Interval Summary Free Text/Dictation Patient still having severe abdominal pain despite current pain medication Exam/Review of Systems Exam Vitals Vital Signs Date Temp Pulse Resp B/P (MAP) Pulse Ox O2 O2 Flow FiO2 Time Delivery Rate 03/05/19 98.0 71 14 98/63 (75) 99 Room Air 07:22 Intake and Output 03/04/19 03/04/19 03/05/19 1515:00 23:00 07:00 IntakeIntake Total 200 ml 1100 ml 1550 ml BalanceBalance 200 ml 1100 ml 1550 ml Constitutional: well developed Head: normocephalic, atraumatic Neck: supple Respiratory: diminished breath sounds Cardiovascular: regular rate and rhythm Gastrointestinal: soft, non-tender Extremities: normal pulses Results Results 24hrs Laboratory Tests Test 03/05/19 04:49 White Blood Count 8.9 Red Blood Count 3.85 L Hemoglobin 11.7 L Hematocrit 34.6 L Mean Corpuscular Volume 89.9 Mean Corpuscular Hemoglobin 30.4 Mean Corpuscular Hemoglobin Concent 33.8 Red Cell Distribution Width 12.9 Platelet Count 298 Mean Platelet Volume 11.5 H Immature Granulocytes % 0.300 Neutrophils % 51.1 Lymphocytes % 36.6 Monocytes % 10.0 Eosinophils % 1.4 Basophils % 0.6 Nucleated Red Blood Cells % 0.0 Immature Granulocytes # 0.030 Neutrophils # 4.5 Lymphocytes # 3.3 H Monocytes # 0.9 Eosinophils # 0.1 Basophils # 0.1 Nucleated Red Blood Cells # 0.0 Sodium Level 139 Potassium Level 4.0 Chloride Level 106 Carbon Dioxide Level 25 Anion Gap 8 Blood Urea Nitrogen < 2 L Creatinine 0.54 Est Glomerular Filtrat Rate mL/min > 60 Glucose Level 105 Calcium Level 9.5 Medications Medication Current Medications Potassium Chloride/Dextrose/ Sod Cl 1,000 ml @ 100 mls/hr Q10H IV Last administered on 03/05/19at 03:19; Admin Dose 100 MLS/HR; Start 03/01/19 at 10:00 Morphine Sulfate (morphine) 2 mg Q3H PRN IV SEVERE PAIN LEVEL 7-10 Last administered on 03/05/19at 10:54; Admin Dose 2 MG; Start 03/01/19 at 10:00 Bisacodyl (Dulcolax) 10 mg DAILY PO Last administered on 03/05/19at 08:35; Admin Dose 10 MG; Start 03/01/19 at 17:00 Ondansetron HCl (Zofran Inj) 4 mg Q6H PRN IV NAUSEA AND/OR VOMITING Last administered on 03/04/19at 11:42; Admin Dose 4 MG; Start 03/02/19 at 00:00 Polyethylene Glycol (Miralax) 17 gm DAILY PO Last administered on 03/05/19 08:35; Admin Dose 17 GM; Start 03/03/19 at 10:30 Lubiprostone (Amitiza) 24 mcg BID PO Last administered on 03/05/19at 08:35; Admin Dose 24 MCG; Start 03/03/19 at 14:30 Enoxaparin Sodium (Lovenox) 30 mg DAILY SC Last administered on 03/05/19at 08:37; Admin Dose 30 MG; Start 03/04/19 at 09:00 Lactulose (Enulose) 20 gm DAILY PRN PO CONSTIPATION; Start 03/04/19 at 09:00 Acetaminophen (Tylenol Tab) 650 mg Q6H PRN PO MILD PAIN(1-3)OR ELEVATED TEMP Last administered on 03/05/19at 02:09; Admin Dose 650 MG; Start 03/05/19 at 02:00 ALFONSO MELCHOR Mar 05, 2019 11:14
[2019-03-05] MEDS ORDERED: morphine 2 MG INJ IV STA (11:15)
[2019-03-05] MEDS: AL HYDROX/MG HYDROX/SIMETH 30 ML CUP PO PRN (12:02)
[2019-03-05 14:35] VITALS: BP 109/74; PULSE 89; RESP 19
[2019-03-05 19:50] VITALS: BP 101/65; PULSE 78; RESP 18
[2019-03-06] MEDS: D5W-0.45 NACL + KCL 20 MEQ 1,000 ML IV SCH ×4 (01:16→23:53)
[2019-03-06 02:30] VITALS: BP 117/75; PULSE 70; RESP 18
[2019-03-06 07:21] VITALS: BP 105/69; PULSE 57; RESP 15
[2019-03-06] MEDS: POLYETHYLENE GLYCOL 17 GM PACKET PO SCH (09:00)
[2019-03-06] MEDS: LUBIPROSTONE 24 MCG CAP PO SCH ×2 (09:00→20:12)
[2019-03-06] MEDS ORDERED: IOHEXOL 300MG/ML 150 ML BTL ONE (11:14)
--- NOTE | 2019-03-06 11:14 | PN ---
Date/Time of Note Date/Time of Note DATE: 03/06/19 TIME: 11:13 Assessment/Plan VTE Prophylaxis Risk score (from Ns)>0 risk: 6 SCD applied (from Ns): Yes Pharmacological prophylaxis: LMWH Lines/Catheters [facility] Per[facility] IV Urinary Cath still in place: No Assessment/Plan Hospital Course - Ileus versus partial small bowel obstruction. Keep patient n.p.o. continue IV fluids, morphine as needed for pain and Zofran as needed for nausea. Dr. Guerin is following patient in surgical consultation. - S/p laparoscopic subtotal gastrectomy by Dr. Guerin on February 11, 2019 for gastric adenocarcinoma. Result Diagram: 03/06/19 0434 03/05/19 0449 Results 24hrs Laboratory Tests Test 03/06/19 04:34 White Blood Count 7.6 Red Blood Count 3.92 L Hemoglobin 11.6 L Hematocrit 35.3 L Mean Corpuscular Volume 90.1 Mean Corpuscular Hemoglobin 29.6 Mean Corpuscular Hemoglobin Concent 32.9 Red Cell Distribution Width 12.7 Platelet Count 282 Mean Platelet Volume 10.9 H Immature Granulocytes % 0.300 Neutrophils % 50.0 Lymphocytes % 36.4 Monocytes % 11.2 H Eosinophils % 1.6 Basophils % 0.5 Nucleated Red Blood Cells % 0.0 Immature Granulocytes # 0.020 Neutrophils # 3.8 Lymphocytes # 2.8 Monocytes # 0.9 Eosinophils # 0.1 Basophils # 0.0 Nucleated Red Blood Cells # 0.0 Lipase 170 Serum HCG, Qualitative NEGATIVE Subjective 24 Hr Interval Summary Free Text/Dictation Patient has some abdominal tenderness but is better compared to yesterday Exam/Review of Systems Exam Vitals Vital Signs Date Temp Pulse Resp B/P (MAP) Pulse Ox O2 O2 Flow FiO2 Time Delivery Rate 03/06/19 98.2 57 15 105/69 98 Room Air 07:21 (81) Intake and Output 03/05/19 03/05/19 03/06/19 1515:00 23:00 07:00 IntakeIntake Total 450 ml 460 ml 1400 ml OutputOutput Total 450 ml BalanceBalance 450 ml 10 ml 1400 ml Constitutional: well developed Head: normocephalic, atraumatic Neck: supple Respiratory: clear to auscultation Cardiovascular: regular rate and rhythm Gastrointestinal: soft, tender Extremities: normal pulses Results Results 24hrs Laboratory Tests Test 03/06/19 04:34 White Blood Count 7.6 Red Blood Count 3.92 L Hemoglobin 11.6 L Hematocrit 35.3 L Mean Corpuscular Volume 90.1 Mean Corpuscular Hemoglobin 29.6 Mean Corpuscular Hemoglobin Concent 32.9 Red Cell Distribution Width 12.7 Platelet Count 282 Mean Platelet Volume 10.9 H Immature Granulocytes % 0.300 Neutrophils % 50.0 Lymphocytes % 36.4 Monocytes % 11.2 H Eosinophils % 1.6 Basophils % 0.5 Nucleated Red Blood Cells % 0.0 Immature Granulocytes # 0.020 Neutrophils # 3.8 Lymphocytes # 2.8 Monocytes # 0.9 Eosinophils # 0.1 Basophils # 0.0 Nucleated Red Blood Cells # 0.0 Lipase 170 Serum HCG, Qualitative NEGATIVE Medications Medication Current Medications Potassium Chloride/Dextrose/ Sod Cl 1,000 ml @ 100 mls/hr Q10H IV Last administered on 03/06/19 01:16; Admin Dose 100 MLS/HR; Start 03/01/19 at 10:00 Morphine Sulfate (morphine) 2 mg Q3H PRN IV SEVERE PAIN LEVEL 7-10 Last administered on 03/05/19at 10:54; Admin Dose 2 MG; Start 03/01/19 at 10:00 Ondansetron HCl (Zofran Inj) 4 mg Q6H PRN IV NAUSEA AND/OR VOMITING Last administered on 03/04/19at 11:42; Admin Dose 4 MG; Start 03/02/19 at 00:00 Polyethylene Glycol (Miralax) 17 gm DAILY PO Last administered on 03/05/19 08:35; Admin Dose 17 GM; Start 03/03/19 at 10:30 Lubiprostone (Amitiza) 24 mcg BID PO Last administered on 03/05/19 20:10; Admin Dose 24 MCG; Start 03/03/19 at 14:30 Enoxaparin Sodium (Lovenox) 30 mg DAILY SC Last administered on 03/05/19 08:37; Admin Dose 30 MG; Start 03/04/19 at 09:00 Lactulose (Enulose) 20 gm DAILY PRN PO CONSTIPATION; Start 03/04/19 at 09:00 Acetaminophen (Tylenol Tab) 650 mg Q6H PRN PO MILD PAIN(1-3)OR ELEVATED TEMP Last administered on 6/15/19at 02:09; Admin Dose 650 MG; Start 03/05/19 at 02:00 Al Hydrox/Mg Hydrox/Simethicone (Mag-Al Plus) 30 ml Q4H PRN PO GASTROINTESTINAL UPSET Last administered on 03/05/19at 12:02; Admin Dose 30 ML; Start 03/05/19 at 12:00 ALFONSO MELCHOR Mar 06, 2019 11:14
[2019-03-06 14:20] VITALS: BP 122/83; PULSE 84; RESP 17
[2019-03-06] MEDS: ENOXAPARIN 30 MG/0.3 ML SYG SC SCH (14:29)
[2019-03-06 19:33] VITALS: BP 107/68; PULSE 72; RESP 16
[2019-03-07 01:42] VITALS: BP 109/67; PULSE 64; RESP 18
--- NOTE | 2019-03-07 07:12 | PN ---
DATE: 03/05/2019 CHIEF COMPLAINT: Abdominal pain, and constipation SUBJECTIVE: This is a 43-year-old female, Hebrew speaking mainly, who presented to the Emergency Room at [facility] yesterday 03/04/2019 complaining of continued abdominal pain and nausea, no vomiting, and not having had bowel movement for 3 days. HISTORY OF PRESENT ILLNESS: This patient actually had a subtotal or near total gastrectomy on 02/11/2019 in this hospital. On postop had a little bit delayed in bowel function, eventually had bowel function and a CT scan had revealed no evidence of leakage from the anastomosis and so eventually patient was discharged home with regular diet and pain medication. Now the patient is coming back and this pain that the patient is complaining of is colicky in nature. While in the hospital, the patient has received a lot of medication; Dulcolax tablets and lactulose and MiraLax. Eventually last night the patient has had 4 bowel movements, which is kind of diarrhea, loose today has had 2 bowel movements per nurse but patient continues to have crampy abdominal pain, and right now I was examining her. ALLERGIES: Allergies are not known. Operation 02/07/2019 for laparoscopy, subtotal gastrectomy. PHYSICAL EXAMINATION: Today patient is awake, alert, oriented, not in acute distress, but she continues to complain of colicky abdominal pain with exacerbations and episodes. OBJECTIVE: VITAL SIGNS: Temperature maximum today 98.4, heart rate 87, R.R. 20, , saturation 98% on room air. LABS: On admission WBC was 11,400, today 8900 with 51% segmented. Normal hemoglobin and hematocrit on admission 15.6/40, today is 11.7/34.6. this probably can be accounted for hydration and adjustment. Platelet count on admission was 515, gradually has decreased today is 298, which is normal. It was elevated. Chemistry: Amylase was up on admission at 350, which is high, but now today is actually under 13, it was 178 which is normal range. Urinalysis: 2+ systems otherwise negative. HEART: Regular. LUNGS: Clear. ABDOMEN: Not distended. Bowel sounds, there exists episode of hyperactive bowel sounds, corresponding to the times the patient complains of exacerbation of the pain. No rigidity, no guarding, no rebound tenderness. IMAGING: Chest x-ray was done on admission, which was negative. Abdominal CT scan was obtained with oral contrast, no IV contrast. The radiologist impression was _comparing to 2019 exam, a segment of small bowel is dilated, containing liquid and partially formed stool. No evidence of significant obstruction. small bowel loops in the left abdomen, small amount of free fluid at the tip of the gallbladder fundus, extending into the right gutter fluid is also noted in the pelvis and large mesenteric lymph nodes likely reactive. Soft tissue surrounding superior to the tail of the pancreas unchanged. 6. Possible sludge containing gall bladder.(( please refer to complete report on [facility] section of E.M.Chart )) Here is a 43-year-old female who has undergone subtotal gastrectomy on 02/11/2019 postop she contineus complain of abdominal pain, colicky in nature but gradually got slightly better. The patient upon discharge a few days ago come back on 02/24 who continued to have abdominal pain, nausea and 1 episode of vomiting and no bowel movement. While the patient in the hospital in the past few days, the patient has not had vomiting, but eventually had bowel movement, even though she had a bowel movement last night into the morning, still complaining of episodes of colicky, severe abdominal pain which corresponds to objective finding of increased and hyperactive bowel sounds. IMPRESSION: Possible small-bowel obstruction. PLAN: We will get upper GI and small bowel series tomorrow with Gastrografin. I will let Dr. Guerin know about this. Dictated By: BECKA GEORGE MD PS/NTS Conf#: [id number] DID#: [id number] CC: KIRAN CARMEN MD;*EndCC* MTDD
[2019-03-07 08:10] VITALS: BP 102/67; PULSE 72; RESP 18
--- NOTE | 2019-03-07 09:21 | PN ---
Date/Time of Note Date/Time of Note DATE: 03/07/19 TIME: 09:20 Assessment/Plan VTE Prophylaxis Risk score (from Ns)>0 risk: 6 SCD applied (from Nsg): Yes Pharmacological prophylaxis: other Lines/Catheters IV Catheter Type (from Nrsg): Peripheral IV Urinary Cath still in place: No Assessment/Plan Assessment/Plan s/p lap subtotal gastrectomy with constipation patient was drinking only liquids and puree diet at home. Patient is ok for regular diet and can be discharged today or tomorrow Result Diagram: 03/06/19 0434 03/05/19 0449 Subjective 24 Hr Interval Summary Free Text/Dictation patient doing well and having bowel movements Exam/Review of Systems Exam Vitals Vital Signs Date Temp Pulse Resp B/P (MAP) Pulse Ox O2 O2 Flow FiO2 Time Delivery Rate 03/07/19 98.2 72 18 102/67 96 08:10 (79) 03/07/19 Room Air 01:42 Intake and Output 03/06/19 03/06/19 03/07/19 1515:00 23:00 07:00 IntakeIntake Total 1000 ml 250 ml 1550 ml BalanceBalance 1000 ml 250 ml 1550 ml Exam c/d/i Medications Medication Current Medications Ondansetron HCl (Zofran Inj) 4 mg Q6H PRN IV NAUSEA AND/OR VOMITING Last administered on 03/04/19at 11:42; Admin Dose 4 MG; Start 03/02/19 at 00:00 Polyethylene Glycol (Miralax) 17 gm DAILY PO Last administered on 03/05/19at 08:35; Admin Dose 17 GM; Start 03/03/19 at 10:30 Lubiprostone (Amitiza) 24 mcg BID PO Last administered on 03/06/19at 20:12; Admin Dose 24 MCG; Start 03/03/19 at 14:30 Enoxaparin Sodium (Lovenox) 30 mg DAILY SC Last administered on 03/06/19at 14:29; Admin Dose 30 MG; Start 03/04/19 at 09:00 Lactulose (Enulose) 20 gm DAILY PRN PO CONSTIPATION; Start 03/04/19 at 09:00 Acetaminophen (Tylenol Tab) 650 mg Q6H PRN PO MILD PAIN(1-3)OR ELEVATED TEMP Last administered on 03/05/19at 02:09; Admin Dose 650 MG; Start 03/05/19 at 02:00 Al Hydrox/Mg Hydrox/Simethicone (Mag-Al Plus) 30 ml Q4H PRN PO GASTROINTESTINAL UPSET Last administered on 03/05/19at 12:02; Admin Dose 30 ML; Start 03/05/19 at 12:00 Radha HERNANDEZ Mar 07, 2019 09:21
[2019-03-07] MEDS: ENOXAPARIN 30 MG/0.3 ML SYG SC SCH (09:34)
[2019-03-07] MEDS: AL HYDROX/MG HYDROX/SIMETH 30 ML CUP PO PRN (11:14)
[2019-03-07 15:44] VITALS: BP 111/77; PULSE 74; RESP 18
--- NOTE | 2019-03-07 18:51 | PN ---
Date/Time of Note Date/Time of Note DATE: 03/07/19 TIME: 18:49 Assessment/Plan VTE Prophylaxis Risk score (from Ns)>0 risk: 6 SCD applied (from Nsg): Yes Pharmacological prophylaxis: LMWH Lines/Catheters IV Catheter Type (from Nrsg): Peripheral IV Urinary Cath still in place: No Assessment/Plan Hospital Course Patient diet progress to regular diet, patient's complaints of diarrhea, will hold all the laxatives which was giving earlier for severe constipation. Patient is encouraged to ambulate. Assessment/Plan - Ileus versus partial small bowel obstruction, resolving. Keep patient n.p.o. continue IV fluids, morphine as needed for pain and Zofran as needed for nausea. Dr. Guerin is following patient in surgical consultation. - Constipation, resolved. - S/p laparoscopic subtotal gastrectomy by Dr. Guerin on February 11, 2019 for gastric adenocarcinoma. Further recommendations based on clinical course. Plan of care discussed with Dr. Busch. Result Diagram: 03/06/19 0434 03/05/19 0449 Exam/Review of Systems Exam Vitals Vital Signs Date Temp Pulse Resp B/P (MAP) Pulse Ox O2 O2 Flow FiO2 Time Delivery Rate 03/07/19 98.3 74 18 111/77 97 Room Air 15:44 (88) Intake and Output 03/06/19 03/06/19 03/07/19 1515:00 23:00 07:00 IntakeIntake Total 1000 ml 250 ml 1550 ml BalanceBalance 1000 ml 250 ml 1550 ml Constitutional: alert, oriented Neck: supple Respiratory: clear to auscultation Cardiovascular: nl pulses Gastrointestinal: soft, non-tender, other Musculoskeletal: nl extremities to inspection Extremities: normal pulses Medications Medication Current Medications Ondansetron HCl (Zofran Inj) 4 mg Q6H PRN IV NAUSEA AND/OR VOMITING Last admi nistered on 03/04/19at 11:42; Admin Dose 4 MG; Start 03/02/19 at 00:00 Enoxaparin Sodium (Lovenox) 30 mg DAILY SC Last administered on 03/07/19at 09:34; Admin Dose 30 MG; Start 03/04/19 at 09:00 Acetaminophen (Tylenol Tab) 650 mg Q6H PRN PO MILD PAIN(1-3)OR ELEVATED TEMP Last administered on 03/05/19at 02:09; Admin Dose 650 MG; Start 03/05/19 at 02:00 Al Hydrox/Mg Hydrox/Simethicone (Mag-Al Plus) 30 ml Q4H PRN PO GASTROINTESTINAL UPSET Last administered on 03/07/19at 11:14; Admin Dose 30 ML; Start 03/05/19 at 12:00 RADHA ENRIQUEZ Mar 07, 2019 18:50
[2019-03-07 20:25] VITALS: BP 111/75; PULSE 78; RESP 17
[2019-03-08 02:15] VITALS: BP 110/74; PULSE 67; RESP 16
[2019-03-08 07:21] VITALS: BP 112/68; PULSE 72; RESP 19
[2019-03-08] MEDS: ENOXAPARIN 30 MG/0.3 ML SYG SC SCH (09:24)
[2019-03-08] MEDS ORDERED: OMEP20CA16 PO (14:40)
[2019-03-08] MEDS ORDERED: SIME80TA60 PO (14:40)
[2019-03-08 15:44] VITALS: BP 116/78; PULSE 82; RESP 19
--- NOTE | 2019-03-08 22:04 | DS ---
Date/Time of Note Date/Time of Note DATE: 03/08/19 TIME: 22:02 Discharge Summary Admission/Discharge Info Admit Date/Time Mar 01, 2019 at 02:38 Discharge Date/Time Mar 08, 2019 at 16:50 Patient Condition: Stable Hx of Present Illness The patient is a 43-year-old female who underwent laparoscopic subtotal gastrectomy by Dr. Guerin on February 11, 2019 for intramucosal moderately differentiated adenocarcinoma that was diagnosed on EGD done in July 2018. Patient presented to the emergency room with complaints of abdominal pain for 1 day and not being able to have a bowel movement for couple of days. She stated she is been on liquid and pured diet at home. Patient denies any fever chills denies any chest pain denies any shortness of breath. Patient underwent CT of the abdomen and pelvis which revealed ileus versus partial small bowel obstruction. Patient is given morphine for pain and Zofran as needed for nausea started on IV fluids. Patient will be admitted for further evaluation and management. Hospital Course - Ileus versus partial small bowel obstruction, resolved. Pt tolerates regular diet, has BMs. Dr. Guerin is following patient in surgical consultation. - Constipation, resolved. - S/p laparoscopic subtotal gastrectomy by Dr. Guerin on February 11, 2019 for gastric adenocarcinoma. Plan of care discussed with Dr. Busch. Home Meds Active Scripts Omeprazole* (Omeprazole*) 20 Mg Capsule., 20 MG PO DAILY, #30 CAP Prov:RADHA ENRIQUEZ 03/08/19 Simethicone* (Mylicon*) 80 Mg Tab, 80 MG PO TID PRN for DISTENSION/GAS/BLOATING, #30 TAB Prov:RADHA ENRIQUEZ 03/08/19 Reported Medications Hydrocodone/Acetaminophen ([place] 5-325 Tablet) 1 Each Tablet, 1 EACH PO, TAB 03/01/19 Follow-up Plan Follow-up with Dr. Guerin in 2 weeks Primary Care Provider [place] Mart[facility]nez [facility] Time spent on discharge: > 30 minutes Pending Labs Laboratory Tests Test 03/08/19 04:50 Sodium Level 139 mmol/L (135-144) Potassium Level 3.8 mmol/L (3.5-5.1) Chloride Level 102 mmol/L (97-110) Carbon Dioxide Level 28 mmol/L (21-31) Anion Gap 9 (5-13) Blood Urea Nitrogen 4 mg/dl (7-20) Creatinine 0.56 mg/dl (0.44-1.00) Est Glomerular Filtrat Rate mL/min > 60 mL/min (>60) Glucose Level 82 mg/dl (70-220) Calcium Level 9.6 mg/dl (8.4-10.2) RADHA ENRIQUEZ Mar 08, 2019 22:04
== END 2019-03-08 16:50 | disposition home or self-care (01) | DRG 389 ==
LOC: E/R 22:41 → MS1 03-01 02:38
PROVIDERS: ADMIT Internal Medicine; ATTEND Internal Medicine
DX: K56.600 Partial intestinal obstruction, unspecified as to cause (principal); E44.0 Moderate protein-calorie malnutrition; Z68.1 Body mass index [BMI] 19.9 or less, adult; K56.7 Ileus, unspecified; K59.00 Constipation, unspecified; Z85.028 Personal history of other malignant neoplasm of stomach
CPT/HCPCS: 71045; 74176; 74240; 74250; 80048; 80053; 81001; 81003; 83690; 84703; 85025; 96361; 96374; 96375; J1650; J2270; J2405; J3480; J7040; Q9967

== ENCOUNTER 2019-03-23 23:38 | Emergency (ER) | payer OTHER ==
[~2019-03-23] VITALS: Ht 154.9 cm; Wt 46.7 kg
[~2019-03-23 23:38] MED LIST changes: +HYDR-4011 PO; +OMEP20CA16 PO; +SIME80TA60 PO; -no medications
[2019-03-23 23:42] VITALS: Ht 154.9 cm; Wt 46.7 kg
[2019-03-24] MEDS ORDERED: ONDANSETRON 4 MG INJ IV STA (00:46)
--- NOTE | 2019-03-24 01:00 | ERD ---
ER Documentation Chief Complaint Chief Complaint CONSTIPATION, AP, VOMITING X'S 1 DAY HPI This is a 43-year-old female who had a laparoscopic subtotal gastrectomy by Dr. Alvarado on February [id number], there is been for an intramucosal moderately differentiated adenocarcinoma, that has been prior diagnosed on EGD July 2018. She came in presenting with abdominal pain for 1 day and then really have a bowel movement, she denies any fevers or chills, she had an admission about 2 weeks for similar episode. Today she states that symptoms are intermittent. Not alleviated or aggravated by anything. ROS All systems reviewed and are negative except as per history of present illness. Medications Home Meds Active Scripts Omeprazole* (Omeprazole*) 20 Mg Capsule.dr, 20 MG PO DAILY, #30 CAP Prov:RADHA ENRIQUEZ 03/08/19 Simethicone* (Mylicon*) 80 Mg Tab, 80 MG PO TID PRN for DISTENSION/GAS/BLOATING, #30 TAB Prov:RADHA ENRIQUEZ 03/08/19 Reported Medications Hydrocodone/Acetaminophen ([place] 5-325 Tablet) 1 Each Tablet, 1 EACH PO, TAB 03/01/19 Allergies Allergies: Coded Allergies: No Known Allergy (Unverified , 03/01/19) PMhx/Soc History of Surgery: Yes (gastric surgery) Anesthesia Reaction: No Hx Neurological Disorder: No Hx Respiratory Disorders: No Hx Cardiac Disorders: No Hx Psychiatric Problems: No Hx Miscellaneous Medical Probl: No Hx Alcohol Use: No Hx Substance Use: No Hx Tobacco Use: No Smoking Status: Never smoker Physical Exam Vitals Vital Signs Date Temp Pulse Resp B/P (MAP) Pulse Ox O2 O2 Flow FiO2 Time Delivery Rate 03/24/19 66 16 92/68 (76) 98 Room Air 01:09 03/23/19 98.0 115 18 124/81 100 23:42 (95) Physical Exam Const: Thin appearing female, appears uncomfortable Head: Atraumatic Eyes: Normal Conjunctiva ENT: Normal External Ears, Nose and Mouth. Neck: Full range of motion. No meningismus. Resp: Clear to auscultation bilaterally Cardio: Regular rate and rhythm, no murmurs Abd: Soft, diffusely tender, no rebound or guarding, non distended. Normal bowel sounds Skin: No petechiae or rashes Back: No midline or flank tenderness Ext: No cyanosis, or edema Neur: Awake and alert Psych: Normal Mood and Affect Result Diagram: 03/24/19 0055 03/24/195 Results 24 hrs Laboratory Tests Test 03/24/19 00:34 03/24/19 00:40 03/24/19 00:55 Urine Color YELLOW Urine Clarity SLIGHTLY CLOUDY Urine pH 5.0 Urine Specific [place] 1.018 Urine Ketones 1+ mg/dL Urine Nitrite NEGATIVE mg/dL Urine Bilirubin NEGATIVE mg/dL Urine Urobilinogen NEGATIVE mg/dL Urine Leukocyte Esterase NEGATIVE Megan/ul Urine Microscopic RBC 1 /HPF Urine Microscopic WBC 5 /HPF Urine Mucus FEW /HPF Urine Hemoglobin NEGATIVE mg/dL Urine Glucose NEGATIVE mg/dL Urine Total Protein NEGATIVE mg/dl Urine Test NEGATIVE White Blood Count 15.7 10^3/ul Red Blood Count 4.38 10^6/ul Hemoglobin 13.2 g/dl Hematocrit 38.8 % Mean Corpuscular Volume 88.6 fl Mean Corpuscular Hemoglobin 30.1 pg Mean Corpuscular 34.0 g/dl Hemoglobin Concent Red Cell Distribution Width 12.6 % Platelet Count 286 10^3/UL Mean Platelet Volume 10.9 fl Immature Granulocytes % 0.500 % Neutrophils % 88.3 % Lymphocytes % 7.2 % Monocytes % 3.6 % Eosinophils % 0.1 % Basophils % 0.3 % Nucleated Red Blood Cells % 0.0 /100WBC Immature Granulocytes # 0.080 10^3/ul Neutrophils # 13.8 10^3/ul Lymphocytes # 1.1 10^3/ul Monocytes # 0.6 10^3/ul Eosinophils # 0.0 10^3/ul Basophils # 0.0 10^3/ul Nucleated Red Blood Cells # 0.0 10^3/ul Sodium Level 143 mmol/L Potassium Level 3.6 mmol/L Chloride Level 107 mmol/L Carbon Dioxide Level 21 mmol/L Anion Gap 15 Blood Urea Nitrogen 7 mg/dl Creatinine 0.61 mg/dl Est Glomerular Filtrat > 60 mL/min Rate mL/min Glucose Level 165 mg/dl Calcium Level 9.7 mg/dl Total Bilirubin 0.6 mg/dl Direct Bilirubin 0.00 mg/dl Indirect Bilirubin 0.6 mg/dl Aspartate Amino Transf (AST/SGOT) 22 IU/L Alanine 21 IU/L Aminotransferase (ALT/SGPT) Alkaline Phosphatase 62 IU/L Troponin I < 0.012 ng/ml Total Protein 7.4 g/dl Albumin 4.2 g/dl Globulin 3.20 g/dl Albumin/Globulin Ratio 1.31 Lipase 190 U/L Current Medications Medications Dose Sig/Nevaeh Start Time Status Last (Trade) Ordered Route PRN Stop Time Admin Dose Reason Admin Ondansetron 4 mg ONCE STAT 03/24/19 DC 03/24/19 HCl (Zofran IV 00:46 03/24/19 01:05 Inj) 00:48 Morphine 4 mg ONCE ONCE 03/24/19 DC 03/24/19 Sulfate IV 03:12 03/24/19 03:25 (morphine) 03:13 Ondansetron 4 mg ONCE ONCE 03/24/19 DC 03/24/19 HCl (Zofran IV 03:12 03/24/19 03:25 Inj) 03:13 Magnesium 300 ml ONCE ONCE 03/24/19 Citrate PO 06:00 03/24/19 (Citroma) 06:01 Procedures/MDM This is a 43-year-old female presents for evaluation of abdominal pain. Recent admission, with what is been partial ileus that resolved, will plan for labs and CT abdomen pelvis. EKG: Rate/Rhythm: Normal Sinus Rhythm QRS, ST, T-waves: No changes consistent w/ acute ischemia Impression: No evidence of ischemia or arrhythmia 5:26 AM: Leukocytosis noted, patient has been given 2 doses of morphine, labs otherwise unremarkable with no evidence of anion gap acidosis. Currently pending is final CT read. 5:48 AM: CT of the pelvis showed no acute findings, patient feels better, reque sted a prescription for simethicone, abdominal scars appear to be healing well, patient feels comfortable going home, will give a dose of mag citrate here, at discharge she was in no distress. Departure Diagnosis: Primary Impression: Abdominal pain Abdominal location: unspecified location Qualified Codes: R10.9 - Unspecified abdominal pain Condition: Stable Patient Instructions: Abdominal Pain ORTIZ EDWARDS MD Mar 24, 2019 01:00
[2019-03-24] MEDS ORDERED: ONDANSETRON 4 MG INJ IV ONE (03:12)
[2019-03-24] MEDS ORDERED: morphine 4 MG/ML VIAL IV ONE (03:12)
[2019-03-24] MEDS ORDERED: SIME125C79 PO (05:52)
[2019-03-24] MEDS ORDERED: MAGNESIUM CITRATE 300 ML BTL PO ONE (06:00)
[2019-03-24 06:26] VITALS: BP 106/70; PULSE 80; RESP 18
== END 2019-03-24 06:30 | disposition home or self-care (01) ==
LOC: E/R 23:38
DX: R10.9 Unspecified abdominal pain (principal); R11.10 Vomiting, unspecified
CPT/HCPCS: 36415; 74176; 80053; 81001; 83690; 84484; 84703; 85025; 93005; 96374; 96375; 96376; J2270; J2405; Z7502; Z7610; 81003